=== PATIENT | male | born 1965 | race Caucasian/White ===

== ENCOUNTER 2019-06-18 02:43 | Observation (INO) | payer OTHER ==
[2019-06-18 04:00] LABS: INR-International Normal Ratio 1.2; PTT 28.9 SEC (22.9-36.1); Prothrombin Time 15.3 SEC (12.0-14.7)
[2019-06-18] MEDS ORDERED: Mag-Al 1200 mg/1200 mg/30 ML UDCUP ONE (04:05)
[2019-06-18] MEDS ORDERED: Lidocaine Viscous Sol 2% 15 ml UD Cup ONE (04:05)
[2019-06-18] MEDS ORDERED: Ketorolac Tromethamine 30 MG/ML VIAL ONE (04:05)
[2019-06-18 04:09] LABS: ALT (SGPT) 45 U/L (8-55); AST (SGOT) 46 U/L (5-34); Albumin 3.8 g/dL (3.5-5.0); Alkaline Phosphatase 109 U/L (40-110); Anion Gap 14 mmol/L (10-20); BUN (Urea Nitrogen) 12 mg/dL (8.4-25.7); Bilirubin, Total 0.7 mg/dL (0.2-1.2); Calc. Creatinine Clearance 0 mL/min (70-130); Calcium 8.6 mg/dL (7.8-10.44); Carbon Dioxide 19 mmol/L (22-29); Chloride 101 mmol/L (98-107); Estimated GFR-MDRD 88; Globulin 2.8 g/dL (2.4-3.5); Glucose 102 mg/dL (70-105); Lipase 66 U/L (8-78); Potassium 3.6 mmol/L (3.5-5.1); Protein, Total 6.6 g/dL (6.0-8.3); Sodium 130 mmol/L (136-145)
[2019-06-18 04:15] LABS: #Basophils 0.1 thou/uL (0.0-0.2); #Lymphocytes 2.3 thou/uL (1.20-3.40); #Monocytes 0.5 thou/uL (0.11-0.59); #Neutrophils 3.7 thou/uL (1.40-6.50); %Basophils 1.7 % (0.0-1.0); %Eosinophils 0.6 % (0.0-10.0); %Lymphocytes 35.2 % (21.0-51.0); %Monocytes 7.3 % (0.0-10.0); %Neutrophils 55.2 % (42.0-75.0); Hemoglobin 13.1 g/dL (14.0-18.0); Mean Corpuscular HGB CONC 36.1 g/dL (32.0-36.0); Mean Corpuscular Hemoglobin 34.5 pg (27.0-31.0); Mean Corpuscular Volume 95.5 fL (78.0-98.0); Platelet Count 145 thou/uL (130-400); RBC Distribution Width 11.2 % (11.5-14.5); Red Blood Cell (RBC) Count 3.78 mill/uL (4.70-6.10); White Blood Cell (WBC) Count 6.6 thou/uL (4.8-10.8)
[2019-06-18] MEDS ORDERED: Aspirin Chewable 81 MG TAB ONE (04:27)
[2019-06-18 04:30] LABS: CKMB 1.7 ng/mL (0-6.6)
[2019-06-18 07:25] VITALS: BMI 21.4
[2019-06-18] MEDS ORDERED: Ondansetron PF 4 MG/2 ML Vial IVP PRN (07:45)
[2019-06-18] MEDS ORDERED: Ondansetron ODT 4 MG TAB PO PRN (07:45)
[2019-06-18] MEDS ORDERED: Acetaminophen 325 MG TAB PO PRN (07:45)
[2019-06-18] MEDS ORDERED: Senokot S 8.6-50 MG TAB PO PRN (07:45)
--- NOTE | 2019-06-18 08:14 | ULT ---
PRELIMINARY REPORT/DIRECT RADIOLOGY/EMERGENCY AFTER HOURS PROCEDURE EXAM: US Abdomen Limited, Right Upper Quadrant. CLINICAL HISTORY: HX EPIGASTRIC PAIN. SEE NOTES ON LAST IMAGE. THANKS TECHNIQUE: Real-time ultrasound of the right upper quadrant with image documentation. COMPARISON:None provided. FINDINGS: LIVER: Fatty infiltration of the liver. Mildly prominent liver. GALLBLADDER: No gallstone. No wall thickening. No pericholecystic fluid. COMMON BILE DUCT: No dilation. It measures 5.5 mm. PANCREAS: Pancreas not well visualized. RIGHT KIDNEY: Nonvisualization of the right kidney. IMPRESSION: Fatty infiltration of the liver. 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 DATE: 06/18/2019. FINDINGS/IMPRESSION: Somewhat coarse liver echogenicity, evidence for nonspecific chronic liver disease including fatty in filtration. No evidence of gallstones. No common duct dilatation. Evidence for urinary bladder dis tention. Negative Clark's sign. Nonvisualized right kidney. This report is in agreement with the preliminary report. POS: [facility]
[2019-06-18 10:19] LABS: Troponin I 0.031 ng/mL (< 0.028)
[2019-06-18] MEDS: NS 0.9% w/ 20 MEQ KCL 1,000 ML/1,000 ML BAG IV SCH ×2 (10:19→23:51)
--- NOTE | 2019-06-18 12:00 | RAD ---
EXAM: CHEST ONE VIEW HISTORY: Right upper quadrant abdominal pain. Syncopal episode. COMPARISON: 11/04/2012 FINDINGS: The cardiac silhouette and pulmonary vasculature is within normal limits. The lungs are clear. The os seous structures are intact. No interval change from prior study. IMPRESSION: No acute cardiopulmonary process.
[2019-06-18 14:10] LABS: Cardiac Risk 4.4 (Less than 4.5); Cholesterol 190 mg/dl (< 200 Desired); HDL Cholesterol 43 mg/dL (>60 Neg Risk); Triglycerides 755 mg/dL (Less than 150)
[2019-06-18 14:34] LABS: CKMB 1.3 ng/mL (0-6.6)
[2019-06-18] MEDS ORDERED: hydrALAZINE 20 MG/ML VIAL SLOW IVP PRN (16:32)
[2019-06-18] MEDS ORDERED: FLU VACC QS2019-20(6MOS UP)/PF 60 MCG/0.5 ML SYRINGE IM ONE (18:00)
--- NOTE | 2019-06-18 18:40 | HP ---
CHIEF COMPLAINT: Chest pain. HISTORY OF PRESENT ILLNESS: A 53-year-old male with a history of hypertension and noncompliant with his blood pressure medications. He went to see his primary care physician 2 weeks ago and they did the blood test and he has been told that he needs to check up as there is some abnormality and concern for coronary artery disease related issues. The patient states that he did not get any imaging studies at that time. In the last 2 weeks, he did not go to work because of ongoing intermittent chest pain. 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 The chest pain mostly in the center of the chest and it stays for the most part, associated with some degree of diaphoresis and shortness of breath with exertion. He is not taking blood pressure medications. He does drink alcohol daily. He did not have any recent flu-like illness or productive cough or fever. at bedside also providing some of the information. His troponin was 0.04. REVIEW OF SYSTEMS: A 13-point review of systems reviewed with the patient. Pertinent addressed in the history of present illness and the rest is negative including no recent fever, night sweats, or chills. No nausea, vomiting, abdominal pain, constipation, diarrhea, hematuria, dysuria, or hematochezia. Denies tingling or numbness in his extremities. No headache or blurriness. Denies any rash in the body. Denies any anxiety or depression at this time. ALLERGIES: HE HAS NO KNOWN DRUG ALLERGY. HOME MEDICATIONS: 1. Trazodone 100 mg at bedtime. 2. Omeprazole 20 mg daily. 3. Fish oil 1200 mg soft gel. 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 He drinks daily. Occasional smoking only. FAMILY HISTORY: Mother had diabetes mellitus as well as stroke. PHYSICAL EXAMINATION: VITAL SIGNS: Temperature 97.7, pulse 68, blood pressure 155/79, saturating 97% on room air. GENERAL: The patient is alert, oriented, not in any acute distress. Does not appear toxic. HEENT: Pupils equal, round, reactive to light. Anicteric. Mucous membranes moist. CARDIOVASCULAR: Regular rate and rhythm without murmurs, rubs, or gallops. LUNGS: Clear to auscultation bilaterally without wheezing, rales, or rhonchi. ABDOMEN: Soft, nontender, nondistended. Good bowel sound. EXTREMITIES: No pitting edema. NEUROLOGICAL: No focal deficits. LABORATORY DATA: Sodium is 130, potassium 3.6, chloride 101. His serial troponin has remained stable at 0.04 to 0.03. EKG, normal sinus rhythm, rate of 65 beats per minute. No ST-T wave changes noted. IMPRESSION AND PLAN: This is a 53-year-old male with a history of hypertension, noncompliant with medications, ongoing active alcohol use, presenting with the chest pain. EKG without any ischemic changes. His troponin is plateaued around 0.04. We will recheck his TSH as well as lipid panel. I am putting him on aspirin and statin as well as blood pressure medication as he does not seem to have any home blood pressure medication and his blood pressure is on the upward trend. I requested the Cardiology for further recommendations. Probably, we will keep him n.p.o. for a stress test. He had a subjective abdominal pain. They did an ultrasound, did not show any gallstones. Fatty liver. Chronic alcohol use, we will watch for any withdrawal symptoms. Check B12 and folate as well as magnesium. We will monitor for now without initiating CIWA protocol. DVT prophylaxis with Lovenox. His creatinine is 0.9. We will check his lipid panel and start him on statin. Job ID: [id number] [facility]
[2019-06-18] MEDS: Morphine 2 MG/ML SYRINGE SLOW IVP PRN (18:41)
--- NOTE | 2019-06-18 19:14 | CON ---
DATE OF CONSULTATION: 06/18/2019 HISTORY OF PRESENT ILLNESS: Mr. Kaufman is a 53-year-old gentleman with epigastric pain and indeterminate troponin levels. Mr. Kaufman came to the hospital complaining of epigastric pain that has been going on for several weeks. He was scheduled for outpatient endoscopy, but it worsened. He said it hurts when he tries to swallow and when he tries to sit up or even move around. He got a GI cocktail early this morning here. The patient also had a cardiac enzyme drawn, which was indeterminate. No chest pain or pressure, heaviness, or squeezing. The patient's past history has a history of very large amounts of alcohol intake. He says he drinks at least a couple of 6 packs a day. He has a history of pancreatitis. His family member states that when he went off the alcohol in the hospital, previously he did not have alcohol withdrawal. The patient has a history of high triglycerides. MEDICATIONS: At home, he was takin. [id number] fish oil. 2. Omeprazole 20 mg a day. REVIEW OF SYSTEMS: Otherwise, negative. SOCIAL HISTORY: Drinks about 12 beers per day, sometimes more. The patient continues to work. ALLERGIES: NONE KNOWN. PHYSICAL EXAMINATION: VITAL SIGNS: It is a pleasant, thin gentleman, in no distress. He is 53 years of age. VITAL SIGNS: Blood pressure 155/66 and pulse 73, regular. EYES: Sclerae nonicteric. MOUTH: Mucous membranes moist. NECK: Supple. No lymphadenopathy. LUNGS: Clear. No wheezing. CARDIAC: Normal S1 and normal S2. There is no murmur, rub, or gallop. ABDOMEN: Soft and nontender. EXTREMITIES: Warm and dry. No clubbing or cyanosis. There is no edema. He has good peripheral pulses. IMAGING: EKG is normal. PERTINENT LABORATORY DATA: His triglycerides were high at 755, cholesterol 190, cannot calculate LDL. Troponin level peak was 0.042, but there was not a peak and trough at all. ASSESSMENT: 1. Epigastric pain worse with eating, sounds like it is gastrointestinal, possible esophagus. 2. History of heavy alcohol intake. 3. Hypertriglyceridemia. 4. History of pancreatitis, but the lipase was normal this admission. 5. Normal EKG. PLAN: 1. We would pursue GI workup. 2. We will draw another troponin level in the morning to see if there is any peak and trough effect. 3. Echocardiogram is pending. 4. Consideration for stress testing while he is here in the hospital. Job ID: [id number]
[2019-06-18] MEDS: Metoprolol Tartrate 25 MG TAB PO SCH (20:06)
[2019-06-18] MEDS ORDERED: Atorvastatin Calcium 20 MG TAB PO SCH (21:00)
[2019-06-18] MEDS: traZODone HCl 50 MG TAB PO SCH (21:48)
[2019-06-18] MEDS ORDERED: Lorazepam 1 MG TAB PO PRN (22:17)
--- NOTE | 2019-06-18 22:18 | PDOC.EVN ---
Event Note - Event Note Event Note: RN called - Pt has h/o alcoholism Will add ASSE protocol
[2019-06-19] MEDS: Morphine 2 MG/ML SYRINGE SLOW IVP PRN ×2 (05:01→21:17)
[2019-06-19 05:12] LABS: Anion Gap 12 mmol/L (10-20); BUN (Urea Nitrogen) 11 mg/dL (8.4-25.7); Calc. Creatinine Clearance 80 mL/min (70-130); Calcium 8.6 mg/dL (7.8-10.44); Carbon Dioxide 24 mmol/L (22-29); Chloride 109 mmol/L (98-107); Estimated GFR-MDRD 77; Glucose 102 mg/dL (70-105); Potassium 3.7 mmol/L (3.5-5.1); Sodium 141 mmol/L (136-145)
[2019-06-19 05:16] LABS: Troponin I 0.037 ng/mL (< 0.028)
[2019-06-19] MEDS: Thiamine 100 MG TAB PO SCH (08:02)
[2019-06-19] MEDS: Multivit, Therapeutic 1 TAB PO SCH (08:02)
[2019-06-19] MEDS: Folic Acid 1 MG TAB PO SCH (08:02)
[2019-06-19] MEDS: Metoprolol Tartrate 25 MG TAB PO SCH ×2 (08:03→21:15)
[2019-06-19] MEDS ORDERED: Aspirin 81 mg Enteric Coated Tablet PO SCH (09:00)
[2019-06-19] MEDS: NS 0.9% w/ 20 MEQ KCL 1,000 ML/1,000 ML BAG IV SCH ×2 (12:00→21:14)
--- NOTE | 2019-06-19 14:05 | PRG ---
DATE OF SERVICE: 06/19/2019 SUBJECTIVE: Mr. Kaufman continues to have epigastric pain. There is no chest pain. To reiterate again that outpatient history, he did not actually have chest pain. It is epigastric pain. OBJECTIVE: GENERAL: On examination, he is alert and oriented. VITAL SIGNS: Blood pressure 169/84 and pulse 64. NECK: Veins are normal. LUNGS: He is breathing comfortably. SKIN: Warm and dry. The stress test is going to be done today, but unfortunately he drinks some caffeine at 3:00 a.m. ASSESSMENT: 1. Epigastric pain, difficulty swallowing, sounds gastrointestinal. 2. Indeterminate troponins. PLAN: 1. He will be scheduled for stress test followed by upper endoscopy. 2. Dr. Medley increased the proton pump inhibitor dose. Job ID: [id number]
--- NOTE | 2019-06-19 14:56 | PDOC.HOSPP ---
- Subjective Encounter Date: 06/19/19 Encounter Time: 14:55 Subjective: Mr. Kaufman was seen today in follow-up of epigastric pain. He says it is constant , and non-radiating. It has been progressive over the past month. He denies dysphagia or odynophagia, no early satiety. - Objective Vital Signs & Weight: Vital Signs (12 hours) Temp Pulse Resp BP Pulse Ox 06/19/19 07:22 98.1 F 65 20 169/84 H 96 06/19/19 04:09 97.9 F 66 20 171/81 H 99 Weight Weight 150 lb 8 oz I&O: 06/18/19 06/19/19 06/20/19 06:59 06:59 06:59 Intake Total 1290 1545 Output Total 500 450 Balance 790 1095 Result Diagrams: 06/18/19 03:43 06/19/19 04:28 Hospitalist ROS - Medication Medications: Active Medications Generic Name Dose Route Start Last Admin Trade Name Freq PRN Reason Stop Dose Admin Folic Acid 1 mg 06/19/19 09:00 06/19/19 08:02 Folvite PO 1 mg DAILY JANEEN Administration Hydralazine HCl 10 mg 06/18/19 16:32 06/18/19 21:52 Apresoline SLOW IVP 10 mg Q4H PRN Administration SBP > 150 Potassium Chloride/Sodium Chloride 1,000 ml in 1,000 mls @ 75 mls/hr 06/18/19 08:00 06/18/19 23:51 Ns 0.9% W/ 20 Meq Kcl IV 1,000 mls .[id number] JANEEN Administration Metoprolol Tartrate 12.5 mg 06/18/19 21:00 06/19/19 08:03 Lopressor PO 12.5 mg BID JANEEN Administration Morphine Sulfate 2 mg 06/18/19 16:33 06/19/19 05:01 Morphine SLOW IVP 2 mg Q8H PRN Administration Chest Pain Multivitamins 1 tab 06/19/19 09:00 06/19/19 08:02 Theragran PO 1 tab DAILY JANEEN Administration Ondansetron HCl 4 mg 06/18/19 07:45 06/19/19 05:01 Zofran Odt PO 4 mg Q6H PRN Administration Nausea/Vomiting Thiamine HCl 100 mg 06/19/19 09:00 06/19/19 08:02 Thiamine PO 100 mg DAILY JANEEN Administration Trazodone HCl 100 mg 06/18/19 21:00 06/18/19 21:48 Desyrel PO 100 mg HS JANEEN Administration - Exam Eye: PERRL, anicteric sclera Heart: RRR, no murmur, no gallops, no rubs, normal peripheral pulses Respiratory: CTAB, no wheezes, no rales, no ronchi, normal chest expansion, no tachypnea, normal percussion Gastrointestinal: soft, non-distended, normal bowel sounds, no hepatomegaly, no splenomegaly, no rigidity, tender to palpation (+ epigastric tenderness with voluntary guarding), voluntary guarding Extremities: no cyanosis, no clubbing, no edema Hosp A/P (1) Epigastric pain Code(s): R10.13 - EPIGASTRIC PAIN Status: Acute (2) Alcohol abuse Code(s): F10.10 - ALCOHOL ABUSE, UNCOMPLICATED Status: Acute - Plan * Epigastric pain- ? etiology- his symptoms sound more GI * Continue IV Protonix, which has been increased to twice a day * Await stress test results * Plan for EGD tomorrow * Discussed Alcohl abuse, and recommended that he stop drinking, and discussed liver disease ect.
--- NOTE | 2019-06-19 19:43 | CON ---
DATE OF CONSULTATION: REASON FOR CONSULT: Dysphagia, epigastric and chest pain. HISTORY OF PRESENT ILLNESS: Mr. Kaufman came to the emergency room yesterday morning with complaints of abdominal pain. Apparently, he had been having some epigastric and right upper quadrant pain and had an episode of "falling out." The patient's reports he fell to the ground and had some tremors in his right hand, was shaky, but then came around. He has had some chronic issues with diarrhea. He has had issues with dysphagia for solid foods for about the past month and a half and has lost about 15 pounds. He drinks 12 to 15 beers a day. He lasted that on Thursday. He had been seen by Dr. Arthur Hallman in the past and had an upper endoscopy in 2016. In 2011, he also has had previous episode of pancreatitis. In 2012 which he reports was attributed to alcohol. He has denied fever. He denies hematemesis or melena. In the emergency room, his knee was swollen. He had a mildly elevated troponin, so Cardiology was consulted and today he is having the resting phase of the stress test. He had coffee apparently and he would not have the stress phase until Thursday. The patient notes intermittently he will have reflux. Denies taking NSAIDs. He does not take a PPI. PAST MEDICAL HISTORY: Alcohol abuse, hypertension, but he has had only his left kidney at this time and diagnosis of cirrhosis or fatty liver in the past by Dr. Hallman. PAST SURGICAL HISTORY: Includes tonsillectomy, severe ureteral obstruction problems in the past. ALLERGIES: NO ALLERGIES. MEDICATIONS: Home medications: 1. Trazodone. 2. Omeprazole. 3. Cedar-3. Medications here: 1. Tylenol. 2. Folvite. 3. Ecotrin. 4. Hydralazine. 5. Ativan. 6. Lopressor. 7. Morphine. 8. Multivitamin. 9. Thiamine. 10. Zofran. 11. Protonix 40 daily. 12. He has had 20 of KCl with normal saline 75 an hour. 13. Crestor. 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 He drinks daily about 12 beers. He is not working. He smokes occasionally. FAMILY HISTORY: Diabetes and stroke. HEALTH HISTORY: Sees Dr. Israel Fox in [place] his PCP. He is actually referred to an appointment in June with Dr. Han. In the last time, he saw Dr. Hallman in 2011. It seems he was evaluated for fatty liver at that time and was deemed to be related to alcohol. REVIEW OF SYSTEMS: Denies any odynophagia. Denies any fever. Denies any cough. Denies any hematochezia, melena, or hematemesis. He has no rashes, myalgias, or arthralgias. He has lost about 15 to 16 pounds. He states he has not had any episodes of blacking out or passing out. PHYSICAL EXAMINATION: VITAL SIGNS: Temperature is 98.1, pulse 65, blood pressure 169/84. GENERAL: He is resting on the nuclear medicine table having his rest images done for his heart. LUNGS: Clear. HEART: Regular rhythm. ABDOMEN: Epigastrium is mildly tender without rebound or guarding. There is no palpable hepatosplenomegaly. EXTREMITIES: No clubbing, cyanosis, or edema. SKIN: He has some spider angiomata on his hands and chest. There is palmar erythema and some spider angiomata on the chest. LABORATORY STUDIES: White count 6.6, yesterday hemoglobin 13.1, platelet count 145, MCV 95. INR is 1.2. Sodium 141, chloride 109, potassium 3.7, bicarb 24, BUN and creatinine are 11 and 1. His triglycerides were 755 on admission. Troponin was 0.042, then 0.037. Albumin was 3.9, globulin was 2.8, protein 6, AST 46, ALT 45, alkaline phosphatase 109, lipase 66, bilirubin 0.7. Chest x-ray showed no acute cardiopulmonary processes and his ultrasound showed fatty liver. ASSESSMENT: 1. Admission with chest pain, possibly a syncopal episode. He had mild elevated troponin. No real anginal symptoms. However, he is having a stress test today. Unfortunately, since he had caffeine in the rest phase, the stress phase would not happen until Thursday. 2. Several months of dysphagia and vomiting. He has had 15-pound weight loss. Does have a history of alcohol and tobacco use in the past. Malignancy is a concern. Esophagitis is just as likely or stricture ring. 3. Alcohol abuse. 4. Fatty liver with mild alcoholic hepatitis. 5. Chronic diarrhea. There is negative celiac testing in the past by Dr. Hallman. RECOMMENDATIONS: 1. IV PPI q.12 hours. 2. Upper endoscopy would be reasonable in light of his weight loss and dysphagia with intermittent bouts of obstruction that cause regurgitated at times, but this is going to have to wait until after his stress test is complete as that process has been begun, so the earliest will happen would be Thursday. I think it will be reasonable with his significant weight loss and definitely his risk factors for malignancy to get that done TAMMY and get that before he leaves the hospital. Dr. Hallman and Dr. Han will return tomorrow. We will see which one was going to follow him up and we will continue to follow him along with you in the hospital. 3. Would agree with DT precautions and multivitamin, thiamine, and folate. Job ID: [id number]
[2019-06-19] MEDS ORDERED: Rosuvastatin 20 MG TAB PO SCH (21:00)
[2019-06-19] MEDS: traZODone HCl 50 MG TAB PO SCH (21:15)
[2019-06-19] MEDS: Pantoprazole 40 MG VIAL IVP SCH (21:15)
[2019-06-20 05:01] LABS: Troponin I 0.024 ng/mL (< 0.028)
[2019-06-20] MEDS: Pantoprazole 40 MG VIAL IVP SCH (07:54)
[2019-06-20] MEDS: Thiamine 100 MG TAB PO SCH (07:55)
[2019-06-20] MEDS: Folic Acid 1 MG TAB PO SCH (07:55)
[2019-06-20] MEDS: Metoprolol Tartrate 25 MG TAB PO SCH (07:55)
[2019-06-20] MEDS: Multivit, Therapeutic 1 TAB PO SCH (07:55)
[2019-06-20] MEDS ORDERED: Regadenoson 0.4 MG/5 ML SYRINGE ONE (08:57)
[2019-06-20] MEDS ORDERED: PROPOFOL 200 MG/20 ML VIAL ONE (09:36)
--- NOTE | 2019-06-20 10:17 | NM ---
EXAM: Nuclear medicine cardiac perfusion examination with ejection fraction HISTORY: Chest pain TECHNIQUE: Rest images: 11 mCi technetium 99m sestamibi Stress images: 33 mCi of technetium 9M sestamibi; Lexiscan COMPARISON: None FINDINGS: Tomographic images: No fixed or reversible perfusion defects. Gated images: Normal wall motion and ejection fraction of 57%. EDV: 127 mL LHR: 0.3 TID: 1.2 IMPRESSION: No evidence of ischemia
[2019-06-20] MEDS: NS 0.9% w/ 20 MEQ KCL 1,000 ML/1,000 ML BAG IV SCH (12:20)
[2019-06-20 13:40] VITALS: BP 166/88; TEMP 98.2
--- NOTE | 2019-06-20 14:01 | PRG ---
DATE OF SERVICE: 06/20/2019 Mr. Kaufman is done getting endoscopy. The stress test was normal. He never has had chest pain. With results of endoscopy, no further intervention from a cardiac standpoint. Okay to discontinue telemetry and to be released home from a cardiac standpoint. Job ID: [id number]
--- NOTE | 2019-06-20 14:31 | PDOC.HOSPP ---
- Subjective Encounter Date: 06/20/19 Encounter Time: 14:29 Subjective: Mr. Kaufman was seen today in follow-up of chest and epigastric pain. He is feeling better today. No new complaints. - Objective Vital Signs & Weight: Vital Signs (12 hours) Temp Pulse Resp BP BP Pulse Ox 06/20/19 13:39 98.2 F 59 L 18 166/88 H 97 06/20/19 07:40 98.4 F 61 20 184/87 H 97 06/20/19 05:07 98.3 F 59 L 16 181/84 H 98 Weight Weight 150 lb 8 oz I&O: 06/19/19 06/20/19 06/21/19 06:59 06:59 06:59 Intake Total 1290 3450 Output Total 500 2050 Balance 790 1400 Result Diagrams: 06/18/19 03:43 06/19/19 04:28 Hospitalist ROS - Medication Medications: Active Medications Generic Name Dose Route Start Last Admin Trade Name Freq PRN Reason Stop Dose Admin Folic Acid 1 mg 06/19/19 09:00 06/20/19 07:55 Folvite PO 1 mg DAILY JANEEN Administration Hydralazine HCl 10 mg 06/18/19 16:32 06/18/19 21:52 Apresoline SLOW IVP 10 mg Q4H PRN Administration SBP > 150 Potassium Chloride/Sodium Chloride 1,000 ml in 1,000 mls @ 75 mls/hr 06/18/19 08:00 06/20/19 12:20 Ns 0.9% W/ 20 Meq Kcl IV Not Given .[id number] JANEEN Metoprolol Tartrate 12.5 mg 06/18/19 21:00 06/20/19 07:55 Lopressor PO 12.5 mg BID JANEEN Administration Morphine Sulfate 2 mg 06/18/19 16:33 06/19/19 21:17 Morphine SLOW IVP 2 mg Q8H PRN Administration Chest Pain Multivitamins 1 tab 06/19/19 09:00 06/20/19 07:55 Theragran PO 1 tab DAILY JANEEN Administration Ondansetron HCl 4 mg 06/18/19 07:45 06/19/19 05:01 Zofran Odt PO 4 mg Q6H PRN Administration Nausea/Vomiting Ondansetron HCl 4 mg 06/18/19 07:45 06/19/19 21:18 Zofran IVP 4 mg Q6H PRN Administration Nausea/Vomiting Rosuvastatin Calcium 20 mg 06/19/19 21:00 06/19/19 21:15 Crestor PO 20 mg HS JANEEN Administration Sodium Chloride 10 ml 06/19/19 20:38 06/19/19 21:19 Flush - Normal Saline IVF 10 ml PRN PRN Administration Saline Flush Thiamine HCl 100 mg 06/19/19 09:00 06/20/19 07:55 Thiamine PO 100 mg DAILY JANEEN Administration Trazodone HCl 100 mg 06/18/19 21:00 06/19/19 21:15 Desyrel PO 100 mg HS JANEEN Administration - Exam Eye: PERRL Heart: RRR, no murmur, no gallops, no rubs, normal peripheral pulses Respiratory: CTAB, no wheezes, no rales, no ronchi, normal chest expansion, no tachypnea, normal percussion Gastrointestinal: soft, non-tender, non-distended, normal bowel sounds, no palpable masses, no hepatomegaly, no splenomegaly Extremities: no cyanosis, no clubbing, no edema Hosp A/P (1) Epigastric pain Code(s): R10.13 - EPIGASTRIC PAIN Status: Acute (2) Alcohol abuse Code(s): F10.10 - ALCOHOL ABUSE, UNCOMPLICATED Status: Acute - Plan * Epigastric pain- patient was found to have an Esophageal stricture on EGD. Stress test was negative * He had some fingins suggestive of Gagan's esophagus * Stable for discharge home and close outpatient follow-up. *
--- NOTE | 2019-06-20 16:55 | OP ---
DATE OF PROCEDURE: 06/20/2019 PROCEDURES PERFORMED: Esophagogastroduodenoscopy with esophageal dilation over a guidewire and esophageal biopsy. PREOPERATIVE DIAGNOSES: Dysphagia and chest pain. He had cardiac evaluation including stress test that was negative. He has a history of alcohol abuse and weight loss as well. DESCRIPTION OF PROCEDURE: Informed consent was obtained from the patient. He was sedated with total intravenous anesthesia. The bite block was placed, and the endoscope was advanced easily to the second portion of the duodenum, and retroflexion was performed in the stomach. The esophagus had a benign moderate distal stenosis at the Z-line. This was dilated to 18 mm with a Savary dilator over a guidewire. There was an appropriate tear at the dilation site. There was also a 1 cm tongue of salmon-colored mucosa extending above the Z-line. This was biopsied to rule out Rosario esophagus. There were no nodularity, and this was very small segment. The remainder of the esophageal mucosa was unremarkable. The stomach was normal including retroflexed views. The pylorus and first and second portions of the duodenum were normal. IMPRESSION: 1. Benign distal esophageal moderate stricture, dilated to 18 mm with good effect and moderate mucosal disruption with dilation. 2. 1 cm segment of possible Rosario esophagus, biopsied. 3. Otherwise, normal upper endoscopy. RECOMMENDATIONS: 1. Await histopathology. 2. Proton-pump inhibitor. 3. Advance diet. 4. Follow up in GI Clinic. I will sign off. Please call if GI can be of assistance. Job ID: [id number]
--- NOTE | 2019-06-21 01:56 | DIS ---
DATE OF ADMISSION: 06/18/2019 DATE OF DISCHARGE: 06/20/2019 PRIMARY CARE PHYSICIAN: Dr. Israel Fox. DISCHARGE DISPOSITION: Home. DISCHARGE DIAGNOSES: 1. Esophageal stricture. 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 3. Epigastric pain, likely secondary to #1. 4. Alcohol abuse. 5. Hypertension. 6. Dyslipidemia. 7. Tobacco abuse. DISCHARGE MEDICATIONS: 1. Protonix 40 mg twice daily. 2. Crestor 20 mg daily. 3. Thiamine 100 mg daily. 4. Multivitamin once daily. 5. Folic acid 1 mg daily. 6. Amlodipine 5 mg daily. 7. Trazodone 100 mg at bedtime. 8. [place]-3 fatty acids 1 tablet daily. IMAGING DONE DURING THE HOSPITAL STAY: The patient had an abdominal ultrasound, which demonstrated fatty infiltration of the liver. No gallstones. No gallbladder wall thickening. No pericholecystic fluid. The patient had new nuclear stress test, which was negative for any reversible ischemia. The TID was 1.2. The patient had an echocardiogram in which the ejection fraction was estimated at 55% to 60%. The patient had an upper endoscopy and the findings of which was significant for an esophageal stricture as well as mucosa suspicious for Rosario's esophagus. CODE STATUS: Full code. ALLERGIES: NO KNOWN DRUG ALLERGIES. HOSPITAL COURSE: Mr. Kaufman is a 53-year-old gentleman, who presented to the emergency room complaining of chest pain and epigastric pain. The patient was placed in observation. He underwent a nuclear stress test, which was negative. Cardiology was also consulted. An echocardiogram was also done, which was essentially negative. His description of the pain sounded more GI in origin than cardiac and for this reason, Gastroenterology was consulted. The patient underwent upper endoscopy and was found to have a distal esophageal stricture as well as findings consistent with a possible Rosario's esophagus. He is being placed on a different proton pump inhibitor twice a day and to follow up with GI in the outpatient setting for surveillance and also with Dr. Fox in 1 to 2 weeks. The patient was also instructed on alcohol cessation as well as tobacco cessation and the dangers of continuing either or both. Job ID: [id number]
== END 2019-06-20 15:34 | disposition home or self-care (01) ==
LOC: ERS 02:43 → 2SW 07:10
PROVIDERS: ADMIT Internal Medicine; ATTEND Internal Medicine
PROC: 0DB58ZX Excision of Esophagus, Via Natural or Artificial Opening Endoscopic, Diagnostic (ICD-10-PCS; principal; 2019-06-20)
PROC: 0D758ZZ Dilation of Esophagus, Via Natural or Artificial Opening Endoscopic (ICD-10-PCS; 2019-06-20)
DX: K22.2 Esophageal obstruction (principal); F10.21 Alcohol dependence, in remission; K76.0 Fatty (change of) liver, not elsewhere classified; K70.10 Alcoholic hepatitis without ascites; K52.9 Noninfective gastroenteritis and colitis, unspecified; I10 Essential (primary) hypertension; E78.5 Hyperlipidemia, unspecified; E78.1 Pure hyperglyceridemia; F17.200 Nicotine dependence, unspecified, uncomplicated; Z79.899 Other long term (current) drug therapy; Z91.14 Patient's other noncompliance with medication regimen
CPT/HCPCS: 36415; 71045; 76705; 78452; 80048; 80053; 80061; 82553; 83690; 84439; 84443; 84484; 85025; 85610; 85730; 88305; 88312; 88313; 90471; 90686; 90732; 93005; 93017; 93306; 96361; 96374; 96375; 96376; A9500; C9113; G0008; G0009; G0378; J0360; J1885; J2270; J2405; J2704; J2785; J3480; Q0162

== ENCOUNTER 2020-03-14 19:22 | Inpatient (IN) | payer SELFPAY ==
[2020-03-14] MEDS ORDERED: Ondansetron PF 4 MG/2 ML Vial ONE (20:29)
[2020-03-14] MEDS ORDERED: Morphine 4 MG/ML VIAL ONE (20:29)
[2020-03-14] MEDS ORDERED: hydrALAZINE 20 MG/ML VIAL ONE (21:24)
[2020-03-14] MEDS ORDERED: Dextrose 50% Abboject 50 ML SYRINGE SLOW IVP PRN (21:31)
[2020-03-14] MEDS ORDERED: Dextrose 5% in Water 1,000 ML IV PRN (21:31)
[2020-03-14] MEDS ORDERED: Ondansetron PF 4 MG/2 ML Vial IVP PRN (21:31)
[2020-03-14] MEDS ORDERED: Morphine 4 MG/ML VIAL SLOW IVP PRN (21:31)
[2020-03-14] MEDS ORDERED: Oxazepam 10 MG CAP PO SCH (22:00)
[2020-03-14] MEDS ORDERED: traMADol HCl 50 MG TAB PO SCH (22:00)
[2020-03-14] MEDS ORDERED: Acetaminophen 500 MG TAB PO SCH (22:00)
--- NOTE | 2020-03-14 23:00 | HP ---
TRAUMA SURGEON: Dr. Knapp. CONSULTING PHYSICIANS: Dr. Meyer and Dr. Polk. HISTORY OF PRESENT ILLNESS: The patient is a 54-year-old male, who presented to our emergency department from an outside emergency department. The patient reports that yesterday around 3 o'clock in the afternoon, he fell about 14 feet out of his deer stand and hit his back on a log. The patient reports that he did have a loss of consciousness but eventually woke up and was able to ambulate back to his home. 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 When going back home in the evening time, his convinced him to go to the emergency department reporting back and abdominal pain. On CT evaluation, he was found to have a L1 burst fracture and he was transferred here for admission to the Trauma Service. Dr. Meyer's team of Neurosurgery evaluated the patient's imaging and recommended nonoperative management with a clamshell TLSO brace. Upon CT evaluation, the patient was also noted to have left hydroureteronephrosis of his only kidney. The patient was not born with a right-sided kidney. The patient reports that he has a history of urethral strictures, for which in 2005, he had operative intervention by urologist. Those records are not available to us. He says since that time, he intermittently self-caths whenever he has difficulty voiding. About 90 days ago, he was not able to pass the catheter. He reports waking up several times throughout the night in order to void and it is very disturbing to his sleep. He has a primary care physician, Dr. Fox, who prescribes trazodone to him for sleep. He is noncompliant with other medications and reports not taking his antihypertensives because it makes him feel unusual. He was not able to describe this further. The patient also has a history of alcohol abuse, drinking more than 9 beers a day. Recently, also one of his children of unknown causes, which has made his drinking slightly worse. Of note, also CT scan demonstrates concern for possible significant carotid stenosis. Ultrasound has been ordered. Upon my evaluation, the patient reports loss of consciousness. No anticoagulation use and no focal neurological deficits on evaluation. He denies numbness or tingling in his bilateral upper and lower extremities and has no significant signs of trauma otherwise. He denies chest pain, shortness of breath, orthopnea, nausea, or vomiting. REVIEW OF SYSTEMS: All additional 10-point review of systems is negative except as indicated above. PAST MEDICAL HISTORY: Hypertension, esophageal strictures, alcohol abuse, dyslipidemia, urethral strictures with operative intervention in 2005. PAST SURGICAL HISTORY: Tonsillectomy and urology surgery for urethral strictures. The patient was not able to further describe what exactly the operative course entailed. SOCIAL HISTORY: The patient lives at home with his . He has one living child and one recently son. 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 He drinks more than 9 beers a day. He reports smoking tobacco for about one year before quitting. Denies any drug use. MEDICATIONS: Include trazodone. Noncompliant with other medications. ALLERGIES: NO KNOWN DRUG ALLERGIES. PHYSICAL EXAMINATION: VITAL SIGNS: Temperature 98.4, pulse 74, respirations 16, oxygen saturation 96% on room air, and blood pressure 182/93. PRIMARY SURVEY: Airway intact. Adequate breath sounds bilaterally. 2+ pulses in bilateral radials, femorals, and DPs. GCS 15. Gross motor and sensation are intact. No lacerations, bruising, or external bleeding. SECONDARY SURVEY: HEAD: Normocephalic. No gross palpable skull deformities or tenderness. EYES: Pupils 3 to 2, equal, round, and reactive bilaterally. ENT: No signs of trauma. C-SPINE: No step-offs or deformities. Nontender. No C-collar in place. CHEST: Nontender. No crepitus. No abrasions or ecchymosis noted. ABDOMEN: Soft, nontender, nondistended. PELVIS: Stable to palpation. Nontender. No abrasions or ecchymosis noted. RECTAL: Deferred. GENITOURINARY: No trauma to the external genitalia. EXTREMITIES: No gross deformities. No abrasions or ecchymosis noted. 2+ pulses in bilateral radials, femorals, and DPs. BACK/SPINE: No step-offs or deformity. Tenderness over the lower thoracic/L-spine. No abrasions or ecchymosis noted. NEUROLOGIC: 5/5 strength in bilateral fitness coordinator, plantar flexion, and dorsiflexion. Gross normal sensation x4 extremities. LABORATORY FINDINGS: White count 6.1, hemoglobin 13.0, hematocrit 38.6, and platelets 124. Sodium 138, potassium 3.9, chloride 103, bicarb 20, BUN 9, creatinine 1.05, glucose 115, total bilirubin 0.4, AST 56, ALT 45, and alkaline phosphatase 118. UA is negative for blood or signs of infection. Plasma alcohol level is 196. DIAGNOSTIC FINDINGS: CT scan of the chest, abdomen, and pelvis demonstrates acute traumatic compression/burst fracture of L1 lumbar vertebrae, mild to moderate left hydroureteronephrosis involving solitary left kidney, apparent possible obstruction at the left ureterovesicular junction. Diffuse mural thickening of the urinary bladder could represent chronic or acute cystitis. Recommend followup with left hydronephrosis with ultrasound after emptying of the urinary bladder. CT scan of the brain demonstrates no acute abnormalities. CT scan of the C-spine demonstrates prominent degenerative changes of the cervical spine. No acute osseous abnormalities are demonstrated. Prominently atherosclerosis with probable high-grade stenosis of the left internal carotid artery. ASSESSMENT: 1. Status post fall 14 feet, greater than 24 hours ago. 2. L1 burst fracture. 3. Left hydroureteronephrosis. 4. Concern for possible left-sided significant carotid stenosis. 5. History of alcohol abuse, hypertension, dyslipidemia, and urethral strictures. PLAN: The patient will be admitted to the Trauma Service. He will go to the regular surgical nursing floor. Dr. Meyer's team has evaluated the patient and they are recommending nonoperative management with a clamshell TLSO brace. He will remain in T and L-spine spinal precautions until his brace is fitted, ensuring to log roll the patient until that time. He can have a regular diet. He will start working with Physical and Occupational Therapy once he has his brace and will likely be able to be discharged home. We will attempt a Gonzalez catheter placement once in the emergency department to give some patient relief so he can sleep this evening. If we are unable to pass the catheter easily, we will leave it out tonight. In the morning, we will consult Dr. Polk of Urology for evaluation of the patient's hydroureteronephrosis. The patient also received carotid ultrasound for evaluation of possible significant carotid stenosis on the left. This patient has been discussed with Dr. Knapp before this dictation. Job ID: [id number]
[2020-03-15 00:22] VITALS: BMI 21.6
[2020-03-15] MEDS: Cyclobenzaprine 10 MG TAB PO PRN ×3 (03:29→20:59)
[2020-03-15] MEDS ORDERED: Sodium Chloride 0.9% 1,000 ML IV SCH (04:30)
[2020-03-15 05:20] LABS: INR-International Normal Ratio 1.1; PTT 29.2 sec (22.9-36.1); Prothrombin Time 13.9 sec (12.0-14.7)
[2020-03-15] MEDS: Acetaminophen 500 MG TAB PO SCH ×3 (05:29→17:25)
[2020-03-15] MEDS: traMADol HCl 50 MG TAB PO SCH ×3 (05:29→17:25)
[2020-03-15 05:33] LABS: #Monocytes 0.6 thou/uL (0.11-0.59); #Neutrophils 2.5 thou/uL (1.40-6.50); %Basophils 0.6 % (0.0-1.0); %Eosinophils 0.9 % (0.0-10.0); %Lymphocytes 23.3 % (21.0-51.0); %Monocytes 14.8 % (0.0-10.0); %Neutrophils 60.4 % (42.0-75.0); Hemoglobin 11.7 g/dL (14.0-18.0); Mean Corpuscular Hemoglobin 32.4 pg (27.0-31.0); Mean Platelet Volume 6.6 fL (7.4-10.4); Platelet Count 101 thou/uL (130-400); RBC Distribution Width 10.9 % (11.5-14.5); White Blood Cell (WBC) Count 4.1 thou/uL (4.8-10.8)
[2020-03-15 05:39] LABS: Anion Gap 12 mmol/L (10-20); BUN (Urea Nitrogen) 12 mg/dL (8.4-25.7); Calc. Creatinine Clearance 102 mL/min (70-130); Calcium 8.8 mg/dL (7.8-10.44); Carbon Dioxide 25 mmol/L (22-29); Chloride 107 mmol/L (98-107); Estimated GFR-MDRD Greater than 90; Glucose 102 mg/dL (70-105); Magnesium 2.1 mg/dL (1.6-2.6); Phosphorus 3.1 mg/dL (2.3-4.7); Sodium 140 mmol/L (136-145)
[2020-03-15] MEDS: Multivitamin W/ Minerals 1 TAB PO SCH (08:13)
[2020-03-15] MEDS: Senokot S 8.6-50 MG TAB PO SCH ×2 (08:13→21:00)
[2020-03-15] MEDS: Oxazepam 10 MG CAP PO SCH ×2 (08:13→14:35)
[2020-03-15] MEDS: Thiamine 100 MG TAB PO SCH (08:13)
[2020-03-15] MEDS: Polyethylene Glycol 3350 17 GM Packet PO SCH (08:14)
[2020-03-15] MEDS: Folic Acid 1 MG TAB PO SCH (08:14)
[2020-03-15] MEDS: Gabapentin 300 MG CAP PO SCH ×3 (08:14→21:00)
[2020-03-15] MEDS: hydrALAZINE 20 MG/ML VIAL SLOW IVP PRN (08:46)
[2020-03-15] MEDS ORDERED: Famotidine/PF 20 mg/2ml Vial SLOW IVP SCH (09:00)
[2020-03-15 09:41] LABS: SARS-CoV-2 MS2 Positive; SARS-CoV-2 N Gene Negative; SARS-CoV-2 S Gene Negative; SARS-CoV-2 by NAA Not Detected (NotDetected); SARS-CoV-2 orf1ab Negative
--- NOTE | 2020-03-15 09:59 | CON ---
DATE OF CONSULTATION: 03/15/2020 HISTORY OF PRESENT ILLNESS: The patient is a 54-year-old male with a past medical history of hypertension, alcohol abuse, urethral strictures, esophageal strictures, who presented to the [place] [facility] yesterday following a fall approximately 14 feet out of a deer stand yesterday afternoon. The patient was significantly intoxicated at that time. He reports he landed on his back on top of a log and had a short period of LOC. Following awakening, he ambulated back to his home, but had developed significant back pain. He was brought to the emergency department in [place] by [facility] where he was evaluated with trauma scans and found to have an L1 burst fracture with very slight retropulsion. He was neurologically intact in the department with no focal weakness. Neurosurgery was consulted for management of this fracture and I recommended transfer to the Main facility for TLSO bracing. During his workup, he was also found to have several other medical issues including hydronephrosis of his single kidney as well as carotid stenosis. He has been admitted by the Trauma Team and they are managing the other medical issues. PAST MEDICAL HISTORY: 1. Hypertension. 2. Esophageal strictures. 3. Alcohol abuse. 4. Dyslipidemia. 5. Urethral strictures with operative intervention in 2005. PAST SURGICAL HISTORY: 1. Tonsillectomy. 2. Urology surgery. SOCIAL HISTORY: He lives at home. He drinks approximately 9 beers per day. He is a former smoker. ALLERGIES: NO KNOWN DRUG ALLERGIES. REVIEW OF SYSTEMS: Per HPI. PHYSICAL EXAMINATION: VITAL SIGNS: Stable. GENERAL: He is lying flat and comfortable. No acute distress. HEENT: Normocephalic, atraumatic. Eyes, PERRLA. Extraocular movements intact. ENT, pink, intact, moist. NECK: Nontender. Free active range of motion. No meningismus or nuchal rigidity. CARDIAC: Regular rate and rhythm. PULMONARY: Symmetric chest expansion. No evidence of dyspnea. MUSCULOSKELETAL: Free active range of motion of all extremities. No focal motor weakness. No reflex asymmetry. BACK: I did not attempt to roll or palpate the spine due to his underlying injury. NEUROLOGIC: A and O x4. No focal neurologic deficits are appreciated. ASSESSMENT AND PLAN: The patient has an acute L1 burst fracture with slight retropulsion after approximately 14 feet fall from a deer stand. He is neurologically intact. We will plan to treat this nonoperatively, conservatively with TLSO bracing. I have ordered a clamshell TLSO to be fitted by [facility], which he should wear at all times. I anticipate bracing in for the next 8 to 12 weeks. I will arrange followup with our service in approximately 4 weeks to reassess. Once his brace is fitted, he can begin to mobilize and transition to home once able. Deferring other medical issues to the Trauma and Medical teams. Job ID: [id number]
[2020-03-15] MEDS ORDERED: Lisinopril 10 MG TAB PO SCH (12:00)
--- NOTE | 2020-03-15 13:29 | ULT ---
CAROTID DOPPLER: Date: 03/15/2020 Ultrasound Doppler study performed on the extracranial carotid arteries with color Doppler, spectral analysis, and velocity recordings. INDICATION: Follow-up recent CT cervical spine which showed evidence of carotid artery stenosis on the left. FINDINGS: Ultrasound images show intimal thickening and prominent echogenic plaque bilaterally. Very pronounced echogenic plaque in the left bulb and proximal left ICA noted. Velocity recordings are increased in the left ICA recorded at up to 193 cm/second systolic. This nedra cates a significant stenosis greater than 60%. Velocities in the right ICA are within normal range, recorded at up to 92 cm/second. Vertebral arteries show antegrade flow. IMPRESSION: 1. There is echogenic plaque and intimal thickening bilaterally with pronounced echogenic plaque in the left proximal ICA. 2. Velocity recordings indicate hemodynamically significant stenosis in the left internal carotid ar sorin. Review of the CT of 03/14/2020 demonstrates prominent calcified plaque in both bulbs which woul d inhibit evaluation with CTA. Recommend cardiovascular consultation and catheter angiogram for accur ate evaluation of the degree of stenosis. POS: TONY
--- NOTE | 2020-03-15 13:40 | ULT ---
RENAL ULTRASOUND: 03/15/20 INDICATIONS: Hydronephrosis, solitary left kidney. Correlation made to CT 03/14/20 which revealed left hydronephrosis in the solitary left kidney. FINDINGS/IMPRESSION: Left kidney measures 12.6 cm length. There is moderate hydronephrosis observed. Urinary bladder is distended. There is urinary bladder wall thickening. Patient voided with handheld held ureter while in bed. Technologist states he was not allowed to get out of bed. Ultrasound post void shows persistent left hydronephrosis. Bladder did not empty and bladder remains distended on post void exam. POS: [facility]
--- NOTE | 2020-03-15 14:39 | PRG ---
DATE OF SERVICE: 03/15/2020 SUBJECTIVE: Mr. Kaufman is a 54-year-old male who is hospital day #1 following a fall from his deer stand, in which he sustained an L1 burst fracture. The patient received his TLSO brace today and reports he is feeling well. The patient's pain is well controlled and he is comfortable sitting on the side of his bed. The patient has been having elevated blood pressures, systolics 170s to 180s. He reports he has a history of high blood pressure and was prescribed medicine in the past, but did not take it because he did not like the way it made him feel. OBJECTIVE: VITAL SIGNS: Temperature 98.3, pulse 60, respirations 18, oxygen saturation 98% on room air, blood pressure 195/92. GENERAL: Comfortable, sitting on the side of the bed, says he was about to go to the restroom. HEENT: Normocephalic and atraumatic. RESPIRATIONS: Clear to auscultation bilaterally. CARDIOVASCULAR: Regular rate and rhythm. ABDOMEN: Soft, nontender, and nondistended. EXTREMITIES: Moving all extremities well. NEUROLOGIC: GCS 15. LABORATORY DATA AND IMAGING DATA: White count 4.1, hemoglobin 11.7, hematocrit 36.5, platelets 101. Sodium 140, potassium 4.0, phosphorus 3.1, and magnesium 2.1. Carotid Doppler study showed echogenic plaque and intimal thickening bilaterally with pronounced echogenic plaque in the left proximal ICA. These studies indicate hemodynamically significant stenosis in left ICA. Recommend cardiovascular consult and catheter angiogram for further evaluation. Renal ultrasound; moderate hydronephrosis of the left ureter, distended urinary bladder with urinary bladder thickening, postvoid persistent left hydronephrosis, and postvoid bladder distention. ASSESSMENT: 1. Status post fall from 14 feet greater than 24 hours ago. 2. L1 burst fracture. 3. Left hydroureteronephrosis. 4. Possible left-sided significant carotid stenosis. 5. History of alcohol abuse, hypertension, dyslipidemia, and urethral strictures. PLAN: 1. The patient was fitted for a TLSO brace and is recommended to follow up with Neurosurgery in 4 weeks after discharge. 2. Urology consult placed for hydronephrosis and history of urethral strictures. We will await their recommendations. 3. Consider Cardiology consult for further workup of possible stenosis of left ICA, may also consider having the patient followup with Cardiology outpatient. 4. Continue to work with PT and OT. Continue pain management and supportive care. 5. Start the patient on 10 mg lisinopril for blood pressure control. 6. Lovenox 40 mg daily for DVT prophylaxis. 7. The patient should be discharged home following being seen by Urology. The patient was seen and evaluated by Dr. Stone during morning rounds. Discussed plan of care with the patient who is in agreement. Job ID: [id number] MTDD
[2020-03-15] MEDS ORDERED: Iopamidol-370 76% 500 ML 1 ML ONE (14:42)
--- NOTE | 2020-03-15 17:43 | CON ---
DATE OF CONSULTATION: 03/15/2020 REASON FOR CONSULTATION: Solitary kidney. CHIEF COMPLAINT: Recent fall. HISTORY OF PRESENT ILLNESS: This is a 54-year-old male, who fell from a deer stand 2 days ago. He presented to the emergency room yesterday and was admitted with an L1 burst fracture, for which no surgery is planned. On CT, the patient was found to have hydroureteronephrosis. In speaking with the patient, he tells me that he was born with only the one kidney. He has a history in 2005 of undergoing what sounds like a DVIU telling me that he had a urologist look in his urethra and cut scar tissue. He was seen by my partner back in 2017, at which point, he was started on twice daily CIC. He had was doing this with some consistency until about 3 months ago, at which point, he became unable to pass the catheter. He has been voiding, although does not feel that he empties completely ever since. He denies suprapubic pain, flank pain, nausea, fevers, or chills. PAST MEDICAL HISTORY: Hypertension, alcohol abuse, hyperlipidemia, and urethral stricture. SURGICAL HISTORY: DVIU as mentioned above, tonsillectomy. SOCIAL HISTORY: Significant alcohol intake. . Employed. Nonsmoker currently. MEDICATIONS: Reviewed. No pertinent urology medications. ALLERGIES: NO KNOWN DRUG ALLERGIES. FAMILY HISTORY: Reviewed, noncontributory. REVIEW OF SYSTEMS: Ten-point review of systems is negative except as mentioned above. PHYSICAL EXAMINATION: VITAL SIGNS: Afebrile, vitals stable. GENERAL: No acute distress, conversant. HEENT: Head, normocephalic and atraumatic. Extraocular movements intact. Sclerae are anicteric. NECK: Supple. Trachea midline. LUNGS: Unlabored breathing. Symmetric chest expansion. HEART: Regular rate and rhythm. ABDOMEN: Not able to evaluate given the clamshell brace. I cannot evaluate for flank tenderness. I am able to somewhat palpate his suprapubic region and cannot appreciate his bladder. SKIN: Warm and dry. NEUROLOGIC: Alert and oriented x3. PSYCHIATRIC: Normal mood and affect. LABORATORY DATA: Creatinine 0.85 with GFR over 90. Urine output 1655. IMAGING: I personally reviewed his CT scan, which does show a distended bladder with hydroureter and minimal hydronephrosis. ASSESSMENT AND PLAN: Urinary retention, likely secondary to urethral stricture. Attempts were made last night to place a catheter. In speaking with the patient and reviewing his case, I do not think there is a reason for us to attempt to place a urethral catheter. This would only worsen his stricture disease. His next step is likely a suprapubic tube, but I do not think this is emergent. His renal function is fine. He is not having any discomfort and he is not having recurrent infections. I decided that we will hold off on placing the catheter until we can meet in my office in a few weeks to perform cystoscopy and consider surgical options. I will arrange followup for about 3 weeks. Please call with any questions. Job ID: [id number] [facility]
--- NOTE | 2020-03-15 20:05 | CT ---
CT ANGIOGRAM NECK WITH CONTRAST: DATE: 03/15/2020 HISTORY: 54-year-old male with left internal carotid artery stenosis TECHNIQUE: After IV contrast injection, arterial bolus chasing technique scan performed from top of aortic arch to skull base Coronal and sagittal 3-D MIP reconstructions. NASCET criteria used. FINDINGS: Right internal carotid: There is multifocal scattered mild to moderate calcified atherosclerotic plaq ue in the proximal vessel, beginning at its origin at the carotid bulb, but with no significant stenosis. Left internal carotid: A combination of heavily calcified hard atheromatous plaque and noncalcified s oft atheromatous plaque in the proximal vessel, beginning at the origin at carotid bulb, and extending superiorly a distance of 2.5 cm. At the superior aspect of this plaque, there is severe, ap proximately 75-90% stenosis of the lumen. Brachiocephalic: Normal Right common carotid: Multifocal scattered small calcified plaque without stenosis. Left common carotid: Bovine common origin with brachiocephalic. Calcified plaque causing mild stenosi s at lower neck. No high-grade stenosis. Right subclavian: Normal Left subclavian: Partially obscuring of distal portion by streak artifact from adjacent contrast bolu s in left subclavian vein, but probably no high-grade stenosis there. Normal proximal portion. Right vertebral: Slightly dominant. No stenosis. Left vertebral: Normal IMPRESSION: A combination of hard and soft atheromatous plaque in the proximal left internal carotid artery cause s severe stenosis there.
[2020-03-15] MEDS: Ibuprofen 200 MG TAB PO PRN (20:59)
[2020-03-15] MEDS ORDERED: Tamsulosin HCl 0.4 MG CAP PO SCH (21:00)
[2020-03-15] MEDS ORDERED: Enoxaparin Sodium 40 MG/0.4 ML SYRINGE SC SCH (21:00)
--- NOTE | 2020-03-15 23:39 | CON ---
DATE OF CONSULTATION: 03/15/2020 REASON FOR CONSULTATION: The patient with asymptomatic left carotid stenosis. HISTORY OF PRESENT ILLNESS: Mr. Kaufman is a 54-year-old gentleman who fell off a tree from his deer stand landing on a wall fractured L1. He has been put in a TLSO brace. As part of his evaluation, he had a CT scan performed of his neck, which showed severe calcification of the left carotid bulb and proximal internal carotid artery. He has had a carotid ultrasound performed, which shows peak systolic velocities of 193 in the left internal carotid artery. There was heavy calcification noted. The patient has no history of TIA or CVA. He has no previous cardiac history. He stopped smoking 2 months ago. He has no peripheral vascular disease history. Currently, he is resting comfortably on the surgical floor. PAST MEDICAL HISTORY: 1. Hypertension. 2. Esophageal strictures. 3. Alcohol abuse. 4. Dyslipidemia. 5. History of urethral strictures. PAST SURGICAL HISTORY: 1. Tonsillectomy. 2. Urologic surgery for urethral strictures. SOCIAL HISTORY: He quit smoking a couple of months ago. He lives at home with his . HOME MEDICATIONS: Trazodone. ALLERGIES: NONE. REVIEW OF SYSTEMS: A 10-point review of systems is performed and is negative except as above. PHYSICAL EXAMINATION: GENERAL: This is a well-developed, well-nourished male, resting comfortably. VITAL SIGNS: Height 6 feet 1 inches, weight is 164 pounds. BSA is 1.96. Temperature is 98.3, pulse is 57 and regular, and blood pressure is 161/79. HEENT: Sclerae nonicteric. Pupils are equal and round bilaterally. NECK: Supple with left carotid bruit. CHEST: Clear bilaterally. HEART: Rhythm is regular. ABDOMEN: Soft. EXTREMITIES: There is no edema. ASSESSMENT AND PLAN: This is a pleasant 54-year-old gentleman who has asymptomatic left carotid stenosis. We will obtain a CT angiogram to evaluate this plaque further and make recommendations from there. I have discussed with him the possibility of surgical treatment and he is amenable. Since he is asymptomatic and currently in a TLSO brace, I would wait a couple months until he is out of the brace and healed from his fracture to treat him. We will make arrangements to follow him up in office. I will discuss his CT findings with him tomorrow. Job ID: [id number]
[2020-03-16] MEDS: Acetaminophen 500 MG TAB PO SCH ×3 (00:26→12:14)
[2020-03-16] MEDS: Oxazepam 10 MG CAP PO SCH ×2 (00:27→08:59)
[2020-03-16] MEDS: traMADol HCl 50 MG TAB PO SCH ×3 (00:27→12:14)
--- NOTE | 2020-03-16 02:45 | PRG ---
DATE OF SERVICE: 03/15/2020 SUBJECTIVE: The patient was seen this evening during rounds. He was lying in bed with his TLSO brace in place. He was resting comfortably and asleep with no signs of acute distress. OBJECTIVE: VITAL SIGNS: Temperature 98.2, pulse 60, respirations 17, oxygen saturation 98% on room air, blood pressure 164/80. ASSESSMENT: 1. Status post fall from 14 feet. 2. L1 burst fracture. 3. Left hydroureteronephrosis, chronic. 4. Severe left-sided carotid stenosis. 5. History of urethral strictures, esophageal strictures, alcohol abuse, hypertension, and hyperlipidemia. PLAN: 1. Continue current diet and pain regimen. 2. Continue physical and occupational therapy. 3. The patient to be evaluated by Dr. Campos for severe carotid stenosis. 4. We will follow up a plan for with him. 5. TLSO brace fitting appropriately. 6. Start working with Physical and Occupational therapy for L-spine fracture. 7. Dr. Polk recommended no Gonzalez at this time. The patient will need a suprapubic catheter. He recommends deferring that to a later date. 8. We will see the patient in three weeks at his clinic. Job ID: [id number]
[2020-03-16 06:44] LABS: #Eosinphils 0.1 thou/uL (0.0-0.7); #Lymphocytes 1.1 thou/uL (1.20-3.40); #Monocytes 0.4 thou/uL (0.11-0.59); #Neutrophils 1.9 thou/uL (1.40-6.50); %Basophils 0.4 % (0.0-1.0); %Lymphocytes 31.3 % (21.0-51.0); %Monocytes 11.3 % (0.0-10.0); %Neutrophils 54.1 % (42.0-75.0); Mean Corpuscular HGB CONC 34.5 g/dL (32.0-36.0); Mean Corpuscular Hemoglobin 35.8 pg (27.0-31.0); Mean Platelet Volume 7.3 fL (7.4-10.4); Platelet Count 96 thou/uL (130-400); RBC Distribution Width 10.9 % (11.5-14.5); Red Blood Cell (RBC) Count 3.36 mill/uL (4.70-6.10); White Blood Cell (WBC) Count 3.4 thou/uL (4.8-10.8)
[2020-03-16 06:53] LABS: Anion Gap 12 mmol/L (10-20); BUN (Urea Nitrogen) 9 mg/dL (8.4-25.7); Calc. Creatinine Clearance 89 mL/min (70-130); Carbon Dioxide 27 mmol/L (22-29); Chloride 103 mmol/L (98-107); Estimated GFR-MDRD 80; Glucose 97 mg/dL (70-105); Magnesium 1.9 mg/dL (1.6-2.6); Phosphorus 3.6 mg/dL (2.3-4.7); Potassium 4.2 mmol/L (3.5-5.1); Sodium 138 mmol/L (136-145)
--- NOTE | 2020-03-16 08:04 | CON ---
DATE OF CONSULTATION: I have reviewed Mr. Kaufman' CT angiogram. He has greater than 80% stenosis of the left internal carotid artery with high risk character to his plaque. I have discussed with him that I would like to wait until after he has his TLSO brace off as the brace will rub on his incision for TCAR. He should be a good TCAR candidate. I will follow him up as an outpatient and we will make plans for TCAR after the 2 month period of TLSO bracing has passed. I would continue him on aspirin and Plavix up until the time of his surgery. Job ID: [id number]
[2020-03-16] MEDS: Gabapentin 300 MG CAP PO SCH ×2 (08:59→13:47)
[2020-03-16] MEDS: Folic Acid 1 MG TAB PO SCH (08:59)
[2020-03-16] MEDS ORDERED: Aspirin 81 mg Enteric Coated Tablet PO SCH (09:00)
[2020-03-16] MEDS ORDERED: Clopidogrel Bisulfate 75 MG TAB PO SCH (09:00)
[2020-03-16] MEDS ORDERED: Lisinopril 10 MG TAB PO SCH (09:00)
[2020-03-16] MEDS ORDERED: Lisinopril 20 MG TAB PO SCH (09:00)
[2020-03-16] MEDS: Polyethylene Glycol 3350 17 GM Packet PO SCH (09:01)
[2020-03-16] MEDS: Multivitamin W/ Minerals 1 TAB PO SCH (09:01)
[2020-03-16] MEDS: Thiamine 100 MG TAB PO SCH (09:02)
[2020-03-16] MEDS: Senokot S 8.6-50 MG TAB PO SCH (09:02)
[2020-03-16 12:08] VITALS: TEMP 98.4
[2020-03-16] MEDS: hydrALAZINE 20 MG/ML VIAL SLOW IVP PRN (13:04)
[2020-03-16] MEDS: Cyclobenzaprine 10 MG TAB PO PRN (13:45)
[2020-03-16] MEDS: Ibuprofen 200 MG TAB PO PRN (13:45)
[2020-03-16 16:20] VITALS: BP 172/81
[2020-03-16] MEDS ORDERED: traZODone HCl 50 MG TAB PO SCH (21:00)
[2020-03-16] MEDS ORDERED: Atorvastatin Calcium 10 MG TAB PO SCH (21:00)
== END 2020-03-16 16:27 | disposition home or self-care (01) | DRG 552 ==
LOC: ERS 19:22 → SURG A 20:34
PROVIDERS: ADMIT Surgery; ATTEND Surgery
DX: S32.011A Stable burst fracture of first lumbar vertebra, initial encounter for closed fracture (principal); N13.30 Unspecified hydronephrosis; Q60.0 Renal agenesis, unilateral; Z20.828 Contact with and (suspected) exposure to other viral communicable diseases; I10 Essential (primary) hypertension; E78.5 Hyperlipidemia, unspecified; F10.10 Alcohol abuse, uncomplicated; W17.89XA Other fall from one level to another, initial encounter; E78.00 Pure hypercholesterolemia, unspecified; K74.60 Unspecified cirrhosis of liver; F41.9 Anxiety disorder, unspecified; K22.2 Esophageal obstruction; I65.21 Occlusion and stenosis of right carotid artery; N35.919 Unspecified urethral stricture, male, unspecified site; R33.9 Retention of urine, unspecified; Z87.891 Personal history of nicotine dependence; Z79.899 Other long term (current) drug therapy
CPT/HCPCS: 36415; 51702; 70498; 76775; 80048; 83735; 84100; 85025; 85610; 85730; 87635; 93880; 96374; 96375; G0390; J0360; J1650; J2270; J2405; Q9967; S0028; U0003

== ENCOUNTER 2020-05-04 15:36 | Inpatient (IN) | payer OTHER, SELFPAY ==
[~2020-05-04 15:36] MED LIST: Magnevist 469MG/ML 20 ML VIAL ONE
[2020-05-04 16:23] LABS: #Basophils 0.1 thou/uL (0.0-0.2); #Eosinphils 0.2 thou/uL (0.0-0.7); #Lymphocytes 2.4 thou/uL (1.20-3.40); #Monocytes 0.7 thou/uL (0.11-0.59); #Neutrophils 5.4 thou/uL (1.40-6.50); %Basophils 0.8 % (0.0-1.0); %Eosinophils 2.2 % (0.0-10.0); %Lymphocytes 27.1 % (21.0-51.0); %Monocytes 7.8 % (0.0-10.0); %Neutrophils 62.1 % (42.0-75.0); Mean Corpuscular HGB CONC 34.3 g/dL (32.0-36.0); Mean Corpuscular Hemoglobin 33.7 pg (27.0-31.0); Mean Corpuscular Volume 98.2 fL (78.0-98.0); Mean Platelet Volume 6.5 fL (7.4-10.4); Platelet Count 197 thou/uL (130-400); RBC Distribution Width 10.8 % (11.5-14.5); Red Blood Cell (RBC) Count 4.15 mill/uL (4.70-6.10); White Blood Cell (WBC) Count 8.8 thou/uL (4.8-10.8)
[2020-05-04 16:43] LABS: ALT (SGPT) 25 U/L (8-55); AST (SGOT) 22 U/L (5-34); Albumin 4.2 g/dL (3.5-5.0); Alkaline Phosphatase 124 U/L (40-110); Anion Gap 16 mmol/L (10-20); BUN (Urea Nitrogen) 6 mg/dL (8.4-25.7); Bilirubin, Total 0.4 mg/dL (0.2-1.2); Calc. Creatinine Clearance 0 mL/min (70-130); Calcium 9.3 mg/dL (7.8-10.44); Carbon Dioxide 23 mmol/L (22-29); Chloride 99 mmol/L (98-107); Globulin 3.7 g/dL (2.4-3.5); Glucose 121 mg/dL (70-105); Potassium 3.9 mmol/L (3.5-5.1); Protein, Total 7.9 g/dL (6.0-8.3); Sodium 134 mmol/L (136-145)
[2020-05-04] MEDS ORDERED: Morphine 4 MG/ML VIAL ONE (18:30)
[2020-05-04] MEDS ORDERED: Ketorolac Tromethamine 30 MG/ML VIAL ONE (18:30)
[2020-05-04] MEDS ORDERED: Vancomycin 1 GM/200 ML BAG ONE (18:30)
[2020-05-04] MEDS ORDERED: Ondansetron PF 4 MG/2 ML Vial ONE (18:48)
[2020-05-04] MEDS ORDERED: Dexamethasone 10 MG/ML VIAL ONE (18:48)
--- NOTE | 2020-05-04 18:53 | MRI ---
MRI LUMBAR SPINE WITH AND WITHOUT CONTRAST: DATE: 05/04/20 HISTORY: 54-year-old male with low back pain, fecal incontinence and loss of control of both. COMPARISON: CT chest abdomen pelvis of 03/14/2020 MRI Lumbar spine of 02/12/2012 TECHNIQUE: Multiple sequences obtained in axial and sagittal planes, pre and post IV injection of gadolinium-bas ed contrast agent. FINDINGS: Review of the prior CT reveals that there are thirteen (13) paired ribs. For the purposes of this rep ort, the lowest ribbearing vertebra will be designated as L1, with bilateral small, accessory ribs. That would make the lowest lumbar type vertebra L6. Again noted is the compression fracture of L2 vertebral body, with minimal bony retropulsion, which q ualifies this as a burst fracture. There is diffuse bone marrow edema throughout the entire L2 verteb ral body. Maximum anterior loss of height is approximately 30 to 40%. Overall loss of height is appro ximately 20%. There has been no interval change in the loss of height since 03/14/20. This is new sin ce the prior MRI of 2011. The bony retropulsion is very mild such that there is no significant centra l spinal canal stenosis at this level. There is no high grade central spinal canal stenosis at any le rossana. The conus medullaris terminates at L3. The cauda equina is arranged in a symmetrical, normal distribu tion throughout the thecal sac. 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 Disc desiccation with central disc protrusions at L5-6 and L6-S1, with midline annular tears. No high grade neural foraminal stenosis at any level. No sixto nerve root compression at any level. N o abnormal enhancement to indicate epidural abscess. No abscess in the perivertebral spaces. Again noted is the dilation of left renal collecting system and left ureter. The CT showed the obstru ction to be at the left UVJ. Again noted is the distended urinary bladder with mural thickening. IMPRESSION: 1. Subacute traumatic burst fracture of L2, with very mild bony retropulsion and mild loss of he ight, unchanged since 03/14/20. 2. No high grade central spinal canal stenosis, cord impression, or cauda equina compression, at any level. 3. No epidural abscess or any other evidence of infectious spondylitis. 4. Mild to moderate degenerative disc disease at L5-L6 and L6-S1. 5. Left hydroureteronephrosis due to obstruction at the left ureterovesical junction. 6. Distended urinary bladder. 7. Transitional levels at thoracolumbar junction and lumbosacral junction. MARIBELL Morales POS: JIN
[2020-05-04 19:05] LABS: PTT 28.6 sec (22.9-36.1); Prothrombin Time 13.6 sec (12.0-14.7)
--- NOTE | 2020-05-04 19:53 | PDOC.HHP ---
Hospitalist HPI - History of Present Illness Urinary, fecal incontinence History of Present Illness: This is a 54-year-old male patient with a history of hypertension, cirrhosis, diabetes and hypercholesterolemia who presents as a referral from his primary care physician on account of urinary fecal incontinence. Of note patient was last admitted here on 03/14/2020 on account of an L1 burst fracture with left hydroureteronephrosis after he had a 14 foot fall from his deer stand at home. Also pertinent on his problem list was carotid artery disease and a solitary left kidney. He was placed on a TLSO brace and on discharge recommended to follow-up with neurosurgery urology and vascular surgery. It was noted that he was difficult to catheterize due to possible strictures and there was a plan for suprapubic catheter placement post discharge. After discharge from his previous admission he was doing generally well until about a week ago when he started having overflow incontinence and difficulty voidingwas reviewed by urology and had a suprapubic catheter placed about 4 days ago. 2 days ago he started noticing issues with function of his suprapubic catheter and some fecal incontinence. He went in to see his PCP today who recommended he come to the ED for further evaluation. At presentation today he had general persistent pain in his low back, suprapubic discomfort and had also pain in his left big toe on account of an acute gout flare. BP was 149/81, pulse 76, respiratory rate 16, temperature 98.0 and oxygen saturation 96 on room air. WBC was 8.8, hemoglobin 14.0 and platelets. Sodium was 134, alkaline phosphatase 124. MRI of his lumbar spine without contrast showed no epidural abscess or evidence of infectious spondylitis, no high-grade central canal stenosis or cord compression or cauda equina compression at any level. Also had left hydroureteral nephrosis due to obst ruction at the left ureteral vesicle junction and distended urinary bladder. Subacute traumatic burst fracture of L2 with mild bony retropulsion and mild loss of height unchanged from 03/14/2020 was noted. He was started on ceftriaxone and vancomycin, dexamethasone for his gout with morphine to help pain reduction. Received [address] Polk of urology was contacted and they suggested an attempt passage of Gonzalez catheter as his suprapubic catheter was blocked and removed. Hospitalist team was consulted to admit. At the time of my assessment patient was lying in bed with his TLSO brace in place. Attempted catheter placement was unsuccessful while I was there. He admitted to significant reduce pain in his back however had ongoing throbbing pain in his left big toe. He denied any chest pain cough shortness of breath or fever. Hospitalist ROS - Review of Systems Constitutional: denies: fever, chills, sweats, weakness ENT: denies: ear pain, ear discharge Respiratory: denies: cough, shortness of breath, hemoptysis Gastrointestinal: denies: nausea, vomiting, abdominal pain, diarrhea Genitourinary: reports: incontinence, retention Musculoskeletal: reports: back pain, leg pain. denies: neck pain, shoulder pain Neurological: reports: weakness. denies: seizures All other systems reviewed; all pertinent +/- noted in HPI/Subj - Medication Medications: Medications: Currently refer to ambulatory list. Allergies: No known drug allergies. Hospitalist History - Past Medical History Other Medical History: Hypertension, diabetes, hypercholesterolemia, solitary left kidney, carotid artery disease - Family History Family History: reports: no pertinent history - Social History Smoking Status: Former smoker Alcohol: reports: Occassional Living Situation: With Family Activity level: uses cane/walker - Exam General Appearance: awake alert Eye: PERRL, anicteric sclera ENT: normocephalic atraumatic Neck: supple, symmetric, no JVD Heart: RRR, no murmur, no gallops, no rubs Respiratory: CTAB, no wheezes, no rales, no ronchi Gastrointestinal: soft, non-tender, non-distended, normal bowel sounds Gastrointestinal - other findings: Infraumbilical area of erythema in previous suprapubic cath site Extremities: no cyanosis, no clubbing, no edema Extremities - other findings: Swollen erythematous tender left big toe Neurological: cranial nerve grossly intact, no weakness Psychiatric: normal affect, normal behavior, A&O x 3 Hospitalist Results - Labs Result Diagrams: 05/06/20 05:22 05/06/20 05:22 Lab results: WBC 8.8 thou/uL (4.8-10.8) 05/04/20 16:05 Hgb 14.0 g/dL (14.0-18.0) 05/04/20 16:05 Hct 40.8 % (42.0-52.0) L 05/04/20 16:05 MCV 98.2 fL (78.0-98.0) H 05/04/20 16:05 Plt Count 197 thou/uL (130-400) 05/04/20 16:05 Neutrophils % 62.1 % (42.0-75.0) 05/04/20 16:05 ESR Westergren 38 mm/hr (Less than 20) H 05/04/20 16:05 Sodium 134 mmol/L (136-145) L 05/04/20 16:05 Potassium 3.9 mmol/L (3.5-5.1) 05/04/20 16:05 Chloride 99 mmol/L (98-107) 05/04/20 16:05 Carbon Dioxide 23 mmol/L (22-29) 05/04/20 16:05 BUN 6 mg/dL (8.4-25.7) L 05/04/20 16:05 Creatinine 0.84 mg/dL (0.7-1.3) 05/04/20 16:05 Glucose 121 mg/dL (70-105) H 05/04/20 16:05 Calcium 9.3 mg/dL (7.8-10.44) 05/04/20 16:05 Total Bilirubin 0.4 mg/dL (0.2-1.2) 05/04/20 16:05 AST 22 U/L (5-34) 05/04/20 16:05 ALT 25 U/L (8-55) 05/04/20 16:05 Alkaline Phosphatase 124 U/L (40-110) H 05/04/20 16:05 C-Reactive Protein 1.05 mg/dL (= or < 0.5) H 05/04/20 16:05 Serum Total Protein 7.9 g/dL (6.0-8.3) 05/04/20 16:05 Albumin 4.2 g/dL (3.5-5.0) 05/04/20 16:05 Hospitalist H&P A/P - Plan Plan: This is a 54-year-old male patient with a history of hypertension and diabetes and recent L2 burst fracture and suprapubic catheter placement presenting with urinary fecal incontinence/retention due to failure of a suprapubic catheter. Urinary obstructionfailure of suprapubic catheter. Attempt Gonzalez catheter placement Urology evaluation in a.m. Abdominal wall cellulitis Started on vancomycin and ceftriaxonewe will continue L2 burst fracture Continue TLSO brace Neurosurgery evaluation in a.m. Carotid artery disease Carotid cardiovascular surgery involved. DVT prophylaxisLovenox CODE STATUSfull code
[2020-05-04] MEDS ORDERED: cefTRIAXone\\ROCEPHIN 1 GM VIAL ONE (20:33)
[2020-05-04] MEDS ORDERED: Dextrose 50% Abboject 50 ML SYRINGE SLOW IVP PRN ×2 (20:50→20:54)
[2020-05-04] MEDS ORDERED: Acetaminophen 325 MG TAB PO PRN (20:50)
[2020-05-04] MEDS ORDERED: Dextrose 5% in Water 1,000 ML IV PRN ×2 (20:50→20:54)
[2020-05-04 23:00] VITALS: BMI 23.4
[2020-05-04] MEDS: HYDROcodone/Acetaminophen 5/325 mg Tablet PO PRN (23:43)
[2020-05-04] MEDS ORDERED: Ondansetron PF 4 MG/2 ML Vial IVP PRN (23:45)
[2020-05-04] MEDS ORDERED: Sodium Chloride 0.9% 1,000 ML IV SCH (23:45)
[2020-05-04] MEDS ORDERED: Ondansetron ODT 4 MG TAB SL PRN (23:45)
[2020-05-05] MEDS ORDERED: traZODone HCl 50 MG TAB PO SCH (00:15)
--- NOTE | 2020-05-05 01:19 | CON ---
DATE OF CONSULTATION: 05/05/2020 SUBJECTIVE: The patient is a 54-year-old male, known to us for evaluation in February of 2020, following a fall from a deer stand with subsequent L2 burst fracture. He was neurologically intact and fitted with a TLSO clamshell which he has been wearing at all times. The patient reports he has been compliant with this brace. Unfortunately, the patient did not follow up with us as planned in approximately 4 weeks after this event. He reports that he has been dealing with some urinary issues. The patient has known urinary strictures and has recently had a suprapubic catheter placed. He was readmitted today for issues with suprapubic catheter function. He also developed some overflow urinary incontinence and an episode of fecal incontinence. The patient was evaluated with an MRI of the lumbar spine, which shows appropriately healing L2 burst fracture with no significant change in the amount of retropulsion or significant nerve compression. The patient otherwise has good motor function in the lower extremities and no other worrisome changes. PAST MEDICAL HISTORY: Urinary strictures, hypertension, diabetes, hyperlipidemia, solitary left kidney, coronary artery disease. FAMILY HISTORY: Noncontributory. SOCIAL HISTORY: He is a former smoker. He drinks socially. He does not use any drugs. REVIEW OF SYSTEMS: Per HPI. ALLERGIES: NO KNOWN DRUG ALLERGIES. PHYSICAL EXAMINATION: VITAL SIGNS: Stable. CONSTITUTIONAL: Awake and alert, in no acute distress. HEAD: Normocephalic and atraumatic. EYES: PERRLA. Extraocular movements intact. ENT: [place], intact, and moist. He has normal voice. NECK: Nontender. Free active range of motion. No meningismus or nuchal rigidity. CARDIAC: Regular rate and rhythm. MUSCULOSKELETAL: Free active range of motion of all extremities. No focal motor weakness. NEUROLOGIC: No focal neurologic deficits are appreciated. ASSESSMENT AND PLAN: The patient has known L2 burst fracture which appears to be healing appropriately without significant nerve compression on recent MRI. I do not believe that this is the cause of his recent episodes of urinary or fecal incontinence. We will defer to Urology in this regard. With regard to his L2 burst fracture, he should continue TLSO bracing at all times. I will arrange another followup visit with us in approximately 4 weeks with repeat x-rays. I have discussed this plan with Dr. Meyer, who is in agreement. Job ID: [id number] [facility]
[2020-05-05 05:57] LABS: #Lymphocytes 0.6 thou/uL (1.20-3.40); #Monocytes 0.1 thou/uL (0.11-0.59); %Basophils 0.7 % (0.0-1.0); %Eosinophils 0.1 % (0.0-10.0); %Lymphocytes 13.2 % (21.0-51.0); %Monocytes 1.9 % (0.0-10.0); %Neutrophils 84.2 % (42.0-75.0); Hemoglobin 12.8 g/dL (14.0-18.0); Mean Corpuscular HGB CONC 34.7 g/dL (32.0-36.0); Mean Corpuscular Hemoglobin 33.7 pg (27.0-31.0); Mean Corpuscular Volume 97.1 fL (78.0-98.0); Mean Platelet Volume 6.7 fL (7.4-10.4); Platelet Count 184 thou/uL (130-400); RBC Distribution Width 10.7 % (11.5-14.5); Red Blood Cell (RBC) Count 3.79 mill/uL (4.70-6.10); White Blood Cell (WBC) Count 4.8 thou/uL (4.8-10.8)
[2020-05-05] MEDS: HumaLOG 300 UNITS/3 ML VIAL SC PRN ×4 (06:02→21:06)
[2020-05-05 06:16] LABS: Anion Gap 14 mmol/L (10-20); BUN (Urea Nitrogen) 10 mg/dL (8.4-25.7); Calc. Creatinine Clearance 89 mL/min (70-130); Carbon Dioxide 22 mmol/L (22-29); Chloride 102 mmol/L (98-107); Glucose 254 mg/dL (70-105); Potassium 4.4 mmol/L (3.5-5.1); Sodium 134 mmol/L (136-145)
[2020-05-05 06:58] LABS: SARS-CoV-2 MS2 Positive; SARS-CoV-2 N Gene Negative; SARS-CoV-2 S Gene Negative; SARS-CoV-2 by NAA Not Detected (NotDetected); SARS-CoV-2 orf1ab Negative
[2020-05-05] MEDS ORDERED: Enoxaparin Sodium 40 MG/0.4 ML SYRINGE SC SCH (09:00)
[2020-05-05] MEDS: HYDROcodone/Acetaminophen 5/325 mg Tablet PO PRN ×3 (09:03→20:57)
--- NOTE | 2020-05-05 11:17 | CON ---
DATE OF CONSULTATION: 05/05/2020 REASON FOR CONSULTATION: Evaluate the patient with left great toe pain. The patient also has asymptomatic left carotid stenosis, which has been delayed in treatment due to him wearing a TLSO brace. Once this is off, we will get him in for TCAR. In regard to his left great toe, the patient states he has gout. He takes sour francis pills at home for gout, which helps. For some reason, he has been off them, presented with left great toe pain in addition to urinary troubles with his suprapubic tube. The urinary troubles have been worked out. He received a dose of steroids, which has greatly reduced his left great toe pain. He has no history of peripheral vascular disease. He does not claudicate. He has no rest pain. He is otherwise asymptomatic from a peripheral standpoint. PAST MEDICAL HISTORY: 1. Asymptomatic left carotid stenosis. 2. TLSO brace for fractured L1. 3. Hypertension. 4. History of urethral strictures, status post suprapubic tube placement. 5. History of esophageal strictures. 6. History of alcohol abuse in the past. 7. Dyslipidemia. PAST SURGICAL HISTORY: 1. Tonsillectomy. 2. Suprapubic tube placement. SOCIAL HISTORY: He quit smoking recently. He lives at home with his . HOME MEDICATION: Trazodone. ALLERGIES: NONE. REVIEW OF SYSTEMS: A 10-point review of systems is performed and is negative except as above. PHYSICAL EXAMINATION: GENERAL: This is a well-developed, well-nourished male, sitting upright in bed, in a TLSO brace. LUNGS: Clear bilaterally. HEART: Rhythm is regular. ABDOMEN: Soft and nontender. He has a suprapubic tube placed. VASCULAR: He has palpable femoral, dorsalis pedis, and posterior tibial pulses bilaterally. He has no ischemic changes to his feet. ASSESSMENT AND PLAN: 1. Gout. The patient is being treated and his left great toe pain has significantly decreased. 2. Asymptomatic left carotid stenosis will be addressed in the future as per previous plans. Job ID: [id number]
[2020-05-05] MEDS ORDERED: Cyclobenzaprine 10 MG TAB PO PRN (11:52)
[2020-05-05] MEDS ORDERED: Ibuprofen 200 MG TAB PO PRN (11:52)
[2020-05-05] MEDS ORDERED: traMADol HCl 50 MG TAB PO PRN (12:12)
[2020-05-05] MEDS ORDERED: Polyethylene Glycol 3350 17 GM Packet PO PRN (12:15)
--- NOTE | 2020-05-05 12:17 | PDOC.HOSPP ---
- Subjective Encounter Date: 05/05/20 (f/u urethral stricture) Encounter Time: 12:16 Subjective: Pt admitted yesterday for urinary obstruction and cellulitis in the context of recent L2 burst fracture and wearing TLSO brace. Pt reports improvement in redness/swelling wherethe suprapubic cath was at. He denies any new sx. Does report daily headaches that last a few hours in the back of his head. He's been out of all meds for a few weeks. - Objective Vital Signs & Weight: Vital Signs (12 hours) Temp Pulse Resp BP Pulse Ox 05/05/20 07:40 97.6 F 82 18 177/83 H 97 05/05/20 04:37 98.0 F 86 19 141/75 H 96 05/05/20 00:37 98.3 F 90 19 150/71 H 97 Weight Weight 173 lb I&O: 05/04/20 05/05/20 05/06/20 06:59 06:59 06:59 Intake Total 1736 Output Total 2600 Balance -864 Result Diagrams: 05/05/20 05:10 05/05/20 05:10 Additional Labs: Accuchecks 05/05/20 05/05/20 05/04/20 11:17 05:40 23:14 POC Glucose 307 H 229 H 149 H Hospitalist ROS - Medication Medications: Active Medications Generic Name Dose Route Start Last Admin Trade Name Freq PRN Reason Stop Dose Admin Hydrocodone Bitart/Acetaminophen 1 tab 05/04/20 20:50 05/05/20 09:03 Hydrocodone/Acetaminophen 5/325 Mg Tablet PO 1 tab Q4H PRN Administration Moderate Pain (4-6) Insulin Human Lispro 0 units 05/04/20 20:54 05/05/20 11:47 Humalog 300 Units/3 Ml Vial SC 5 unit .MILD SLIDING SCALE PRN Administration Mild Correctional Scale - Exam General Appearance: NAD Heart: RRR, no murmur Respiratory: CTAB, no wheezes, no rales, no ronchi Gastrointestinal: normal bowel sounds Extremities: no cyanosis, no clubbing, no edema Skin - other findings: erythema and mild induration where suprapubic cath was at Psychiatric: normal affect Hosp A/P (1) Urethral stricture Code(s): N35.919 - UNSPECIFIED URETHRAL STRICTURE, MALE, UNSPECIFIED SITE Status: Chronic Qualifiers: Urethral stricture type: unspecified stricture type (2) Cellulitis Code(s): L03.90 - CELLULITIS, UNSPECIFIED Status: Acute Qualifiers: Site of cellulitis: trunk (3) Lumbar burst fracture Code(s): S32.001A - STABLE BURST FRACTURE OF UNSP LUMBAR VERTEBRA, INIT Status: Acute Qualifiers: Encounter type: sequela Fracture type: closed Qualified Code(s): S32.001S - Stable burst fracture of unspecified lumbar vertebra, sequela (4) Carotid artery disease Code(s): I77.9 - DISORDER OF ARTERIES AND ARTERIOLES, UNSPECIFIED Status: Acute Qualifiers: Carotid artery disease type: unspecified Laterality: unspecified laterality Qualified Code(s): I77.9 - Disorder of arteries and arterioles, unspecified - Plan Cellulitis - continue Rocephin Urethral stricture and now s/p suprapubic cath removal - to OR Thursday with Dr. Polk Leg/back pain - no surgical indication - continue clamshell - resume gabapentin at lower dose - resume tramadol prn and flexeril Alcohol use - add ASE protocol without IV meds or scheduled valium Likely new DM dx - check A1c HTN - likely new dx - start metoprolol Carotid stenosis - resume asa/plavix after urology procedure - f/u with Dr. Campos as outpatient constipation - scheduled and prn bowel meds Insomnia - home trazodone dvt prophy -scd's gi prophy - not indicated code status - full reviewed plan of care with patient/, no questions or further neds at end of eval
[2020-05-05] MEDS ORDERED: Diazepam 5 MG TAB PO PRN (12:23)
--- NOTE | 2020-05-05 12:26 | CON ---
DATE OF CONSULTATION: 05/05/2020 REASON FOR CONSULTATION: Urinary retention. CHIEF COMPLAINT: Suprapubic tube not draining. HISTORY OF PRESENT ILLNESS: A 54-year-old male with a history of hypertension, cirrhosis, alcohol abuse, diabetes, hypercholesterolemia, solitary kidney, urethral stricture disease, who I recently saw last year while inpatient after falling from a deer stand, sustaining an L2 burst fracture. He has had a clamshell in place ever since. He was seen in my clinic on Thursday, at which point, we placed a suprapubic tube with dilation of his urethral stricture to allow passage of the cystoscope. He tells me that the tube worked well until late Thursday, at which point, it no longer drained. He waited 2 days until presenting to the emergency room late yesterday for this issue. He was noted to have cellulitis around the suprapubic site. I advised that the suprapubic tube simply will be removed and a 14-Syrian Gonzalez catheter be placed, which was done by the nursing staff. His catheter has been draining clear urine all night long. On review of his MRI, he does have a distended bladder and left hydroureter and hydronephrosis. This was prior to catheter placement. His creatinine is stable. White count 8.8. Today, he tells me that he is having much less discomfort at the suprapubic site and his bladder is no longer hurting secondary to retention. He denies flank pain, nausea, or fevers. Neurosurgery would like him to wear his clamshell another month before beginning to give him time without it. He does have asymptomatic carotid stenosis with future plans for surgical intervention; however, the clamshell will need to be off first. PAST SURGICAL HISTORY: DVIU in 2005, suprapubic tube at beginning of this week. SOCIAL HISTORY: Alcohol abuse. Nonsmoker. MEDICATIONS: Reviewed. No pertinent urology medications. ALLERGIES: NO KNOWN DRUG ALLERGIES. FAMILY HISTORY: Reviewed, noncontributory. REVIEW OF SYSTEMS: A 12-point review of systems is negative except as mentioned above. PHYSICAL EXAMINATION: GENERAL: No acute distress. Conversant. HEART: Regular rate and rhythm. LUNGS: Unlabored breathing. Symmetric chest expansion. ABDOMEN: Abdominal exam not possible with clamshell in place. Suprapubic site with minimal erythema. Suprapubic incision is already closed completely. No tenderness. A 14-Syrian catheter in good position, draining clear urine. EXTREMITIES: No peripheral edema or cyanosis. NEUROLOGIC: Alert and oriented x3. PSYCHIATRIC: Normal mood and affect. LABORATORY AND IMAGING: Reviewed as mentioned in my HPI. ASSESSMENT AND PLAN: Urinary retention, bulbar stricture, solitary left kidney. I have spoken with Dr. Campos, who advises that the patient is under no significant risk for anesthesia for suprapubic tube replacement on Thursday. I spoke with the patient and his and advised that as long as we can take him off his blood thinners and safely undergo anesthesia on Thursday, we will place suprapubic tube with retrograde urethrogram and urethral ultrasound. He will discharge home afterwards, and about 2 to 3 weeks later, we will perform what I expect will be an anastomotic urethroplasty with Gonzalez catheter for 2 weeks afterwards. He and his expressed understanding of the plan, and as long as he is safe to do so, whished to continue on Thursday. Job ID: [id number]
[2020-05-05] MEDS ORDERED: Thiamine HCl 200 MG/2 ML VIAL IM SCH (12:30)
[2020-05-05] MEDS: Gabapentin 100 MG CAP PO SCH ×2 (14:25→20:26)
[2020-05-05] MEDS: cefTRIAXone\\ROCEPHIN 1 GM in Sodium Chloride 0.9% 100 ML IVPB SCH (20:24)
[2020-05-05] MEDS: Senokot S 8.6-50 MG TAB PO SCH (20:28)
[2020-05-05] MEDS: traZODone HCl 50 MG TAB PO SCH (20:28)
[2020-05-05] MEDS: Metoprolol Tartrate 25 MG TAB PO SCH (20:30)
[2020-05-05] MEDS ORDERED: FLU VACC QS2020-21(6MOS UP)/PF 60 MCG/0.5 ML SYRINGE IM ONE (21:00)
[2020-05-06] MEDS ORDERED: Diazepam 5 MG TAB PO PRN (04:00)
[2020-05-06 05:43] LABS: #Basophils 0.1 thou/uL (0.0-0.2); #Lymphocytes 1.6 thou/uL (1.20-3.40); #Monocytes 0.5 thou/uL (0.11-0.59); #Neutrophils 3.9 thou/uL (1.40-6.50); %Basophils 1.6 % (0.0-1.0); %Eosinophils 0.6 % (0.0-10.0); %Lymphocytes 26.6 % (21.0-51.0); %Monocytes 8.6 % (0.0-10.0); %Neutrophils 62.6 % (42.0-75.0); Hemoglobin 12.1 g/dL (14.0-18.0); Mean Corpuscular HGB CONC 34.1 g/dL (32.0-36.0); Mean Corpuscular Hemoglobin 33.4 pg (27.0-31.0); Mean Corpuscular Volume 97.9 fL (78.0-98.0); Mean Platelet Volume 6.3 fL (7.4-10.4); Platelet Count 163 thou/uL (130-400); RBC Distribution Width 10.7 % (11.5-14.5); Red Blood Cell (RBC) Count 3.63 mill/uL (4.70-6.10); White Blood Cell (WBC) Count 6.2 thou/uL (4.8-10.8)
[2020-05-06 06:07] LABS: Anion Gap 13 mmol/L (10-20); BUN (Urea Nitrogen) 9 mg/dL (8.4-25.7); Calc. Creatinine Clearance 92 mL/min (70-130); Calcium 8.9 mg/dL (7.8-10.44); Carbon Dioxide 25 mmol/L (22-29); Chloride 107 mmol/L (98-107); Glucose 114 mg/dL (70-105); Sodium 141 mmol/L (136-145)
[2020-05-06] MEDS: Multivitamin W/ Minerals 1 TAB PO SCH (08:26)
[2020-05-06] MEDS: Magnesium Oxide 400 MG TAB PO SCH (08:26)
[2020-05-06] MEDS: Gabapentin 100 MG CAP PO SCH ×3 (08:26→20:30)
[2020-05-06] MEDS: Senokot S 8.6-50 MG TAB PO SCH ×2 (08:26→20:30)
[2020-05-06] MEDS: Folic Acid 1 MG TAB PO SCH (08:26)
[2020-05-06] MEDS: Thiamine 100 MG TAB PO SCH (08:26)
[2020-05-06] MEDS: Metoprolol Tartrate 25 MG TAB PO SCH (08:27)
[2020-05-06] MEDS ORDERED: Amlodipine 5 MG TAB PO SCH (14:15)
--- NOTE | 2020-05-06 14:15 | PDOC.HOSPP ---
- Subjective Encounter Date: 05/06/20 (f/u cellulitis) Encounter Time: 14:14 Subjective: Pt admitted 2 days ago for abd wall cellulitis, urinary obstruction. He reports feeling better today - is awaiting a Urology procedure tomorrow with Dr. Polk. Pt reports hard stool yesterday, no bm today. - Objective Vital Signs & Weight: Vital Signs (12 hours) Temp Pulse Resp BP BP Pulse Ox 05/06/20 12:43 98.0 F 56 L 20 153/84 H 99 05/06/20 12:00 153/84 H 05/06/20 08:36 98.3 F 57 L 20 177/84 H 99 05/06/20 04:28 97.8 F 65 18 162/85 H 99 Weight Weight 173 lb I&O: 05/05/20 05/06/20 05/07/20 06:59 06:59 06:59 Intake Total 1736 2980 Output Total 2600 2100 Balance -864 880 Result Diagrams: 05/06/20 05:22 05/06/20 05:22 Additional Labs: Accuchecks 05/06/20 05/06/20 05/05/20 10:38 05:19 20:46 POC Glucose 143 H 119 H 192 H 05/05/20 15:49 POC Glucose 237 H Hospitalist ROS - Medication Medications: Active Medications Generic Name Dose Route Start Last Admin Trade Name Freq PRN Reason Stop Dose Admin Hydrocodone Bitart/Acetaminophen 1 tab 05/04/20 20:50 05/05/20 20:57 Hydrocodone/Acetaminophen 5/325 Mg Tablet PO 1 tab Q4H PRN Administration Moderate Pain (4-6) Folic Acid 1 mg 05/06/20 09:00 05/06/20 08:26 Folic Acid 1 Mg Tab PO 1 mg DAILY JANEEN Administration Gabapentin 100 mg 05/05/20 15:00 05/06/20 08:26 Gabapentin 100 Mg Cap PO 100 mg TID JANEEN Administration Ceftriaxone Sodium 1 gm/ 100 mls @ 200 mls/hr 05/05/20 21:00 05/05/20 20:24 Sodium Chloride IVPB 100 mls Q24HR JANEEN Administration Insulin Human Lispro 0 units 05/04/20 20:54 05/05/20 21:06 Humalog 300 Units/3 Ml Vial SC 2 unit .MILD SLIDING SCALE PRN Administration Mild Correctional Scale Iron/Minerals/Multivitamins 1 tab 05/06/20 09:00 05/06/20 08:26 Multivitamin W/ Minerals 1 Tab PO 1 tab DAILY JANEEN Administration Magnesium Oxide 400 mg 05/06/20 09:00 05/06/20 08:26 Magnesium Oxide 400 Mg Tab PO 400 mg DAILY JANEEN Administration Senna/Docusate Sodium 1 tab 05/05/20 21:00 05/06/20 08:26 Senokot S 8.6-50 Mg Tab PO 1 tab BID JANEEN Administration Thiamine HCl 100 mg 05/06/20 09:00 05/06/20 08:26 Thiamine 100 Mg Tab PO 100 mg DAILY JANEEN Administration Tramadol HCl 50 mg 05/05/20 12:12 05/06/20 09:10 Tramadol Hcl 50 Mg Tab PO 50 mg Q6H PRN Administration Mild-Moderate Pain (1-5) Trazodone HCl 100 mg 05/05/20 21:00 05/05/20 20:28 Trazodone Hcl 50 Mg Tab PO 100 mg HS JANEEN Administration - Exam General Appearance: NAD Heart: RRR, no murmur Respiratory: CTAB, no wheezes, no rales, no ronchi Gastrointestinal: soft, normal bowel sounds Extremities: no cyanosis, no clubbing, no edema Skin - other findings: erythema/induration around prior suprapubic cath site. Psychiatric: normal affect Hosp A/P (1) Urethral stricture Code(s): N35.919 - UNSPECIFIED URETHRAL STRICTURE, MALE, UNSPECIFIED SITE Status: Chronic Qualifiers: Urethral stricture type: unspecified stricture type (2) Cellulitis Code(s): L03.90 - CELLULITIS, UNSPECIFIED Status: Acute Qualifiers: Site of cellulitis: trunk (3) Lumbar burst fracture Code(s): S32.001A - STABLE BURST FRACTURE OF UNSP LUMBAR VERTEBRA, INIT Status: Acute Qualifiers: Encounter type: sequela Fracture type: closed Qualified Code(s): S32.001S - Stable burst fracture of unspecified lumbar vertebra, sequela (4) Carotid artery disease Code(s): I77.9 - DISORDER OF ARTERIES AND ARTERIOLES, UNSPECIFIED Status: Acute Qualifiers: Carotid artery disease type: unspecified Laterality: unspecified laterality Qualified Code(s): I77.9 - Disorder of arteries and arterioles, unspecified (5) Anemia Code(s): D64.9 - ANEMIA, UNSPECIFIED Status: Chronic Qualifiers: Anemia type: unspecified type Qualified Code(s): D64.9 - Anemia, unspecified - Plan Cellulitis - continue Rocephin - continues to improve Urethral stricture and now s/p suprapubic cath removal - to OR tomorrow with Dr. Polk Leg/back pain - no surgical indication - continue clamshell - continue gabapentin at lower dose - continue tramadol prn and flexeril - will need rx for these at discharge Alcohol use - ASE protocol - per RN, no tx indicated hus far Elevated blood sugars with normal A1c - no DM dx. May be secondary to infection HTN - likely new dx - metoprolol started and pulse in the 50's. Will d/c this and start amlodipine Carotid stenosis - resume asa/plavix after urology procedure per Dr. Polk - f/u with Dr. Campos as outpatient constipation - scheduled and prn bowel meds Insomnia - home trazodone Anemia - chronic/stable - needs outpatient follow up Dyslipidemia - needs outpatient follow-up dvt prophy -scd's gi prophy - not indicated code status - full reviewed plan of care with patient/, no questions or further needs at end of eval anticipate d/c when cleared by Urology - may be as soon as tomorrow
[2020-05-06] MEDS: traZODone HCl 50 MG TAB PO SCH (20:31)
[2020-05-06] MEDS: cefTRIAXone\\ROCEPHIN 1 GM in Sodium Chloride 0.9% 100 ML IVPB SCH (20:32)
[2020-05-06] MEDS: HYDROcodone/Acetaminophen 5/325 mg Tablet PO PRN (20:37)
[2020-05-06] MEDS: HumaLOG 300 UNITS/3 ML VIAL SC PRN (20:48)
[2020-05-07] MEDS: Sodium Chloride 0.9% 1,000 ML IV SCH ×2 (02:44→15:20)
[2020-05-07 05:47] LABS: #Eosinphils 0.1 thou/uL (0.0-0.7); #Lymphocytes 1.2 thou/uL (1.20-3.40); #Monocytes 0.6 thou/uL (0.11-0.59); #Neutrophils 2.6 thou/uL (1.40-6.50); %Basophils 0.6 % (0.0-1.0); %Eosinophils 2.4 % (0.0-10.0); %Lymphocytes 27.1 % (21.0-51.0); %Monocytes 13.2 % (0.0-10.0); %Neutrophils 56.8 % (42.0-75.0); Hemoglobin 12.5 g/dL (14.0-18.0); Mean Corpuscular HGB CONC 33.8 g/dL (32.0-36.0); Mean Corpuscular Hemoglobin 33.3 pg (27.0-31.0); Mean Corpuscular Volume 98.5 fL (78.0-98.0); Platelet Count 166 thou/uL (130-400); RBC Distribution Width 10.8 % (11.5-14.5); Red Blood Cell (RBC) Count 3.74 mill/uL (4.70-6.10); White Blood Cell (WBC) Count 4.6 thou/uL (4.8-10.8)
[2020-05-07 06:15] LABS: Anion Gap 12 mmol/L (10-20); BUN (Urea Nitrogen) 9 mg/dL (8.4-25.7); Calc. Creatinine Clearance 86 mL/min (70-130); Calcium 8.9 mg/dL (7.8-10.44); Carbon Dioxide 27 mmol/L (22-29); Chloride 106 mmol/L (98-107); Glucose 112 mg/dL (70-105); Potassium 4.5 mmol/L (3.5-5.1); Sodium 140 mmol/L (136-145)
[2020-05-07] MEDS ORDERED: EPINEPHrine 1 MG/ML AMP ONE (08:05)
[2020-05-07] MEDS ORDERED: Iothalamate Meglumine 60% 50 ML VIAL FS ONE (08:05)
[2020-05-07] MEDS ORDERED: Bupivacaine PF 0.5% 30 ML VIAL ONE (08:05)
[2020-05-07] MEDS ORDERED: Fentanyl 100 MCG/2 ML VIAL ONE ×2 (08:42→09:57)
[2020-05-07] MEDS ORDERED: Midazolam HCl 2 mg/2 ml Vial ONE (08:42)
[2020-05-07] MEDS ORDERED: Amlodipine 5 MG TAB PO SCH ×2 (09:00→14:30)
[2020-05-07] MEDS ORDERED: Promethazine HCl 25 MG/ML VIAL SLOW IVP PRN (10:05)
[2020-05-07] MEDS ORDERED: Ondansetron HCl/PF 4 MG/2 ML Vial IVP PRN (10:05)
[2020-05-07] MEDS ORDERED: Promethazine HCl 25 MG/ML VIAL IM PRN (10:05)
--- NOTE | 2020-05-07 10:06 | OP ---
DATE OF PROCEDURE: 05/07/2020 PREOPERATIVE DIAGNOSES: Stricture, urinary retention. POSTOPERATIVE DIAGNOSES: Stricture, urinary retention. PROCEDURES: Retrograde urethrogram, urethral ultrasound, suprapubic tube placement. ANESTHESIA: General. COMPLICATIONS: None. ESTIMATED BLOOD LOSS: Minimal. SPECIMENS: None. DESCRIPTION OF PROCEDURE: After informed consent, the patient was taken to the operating room, transferred to the table under his own power. Anesthesia was established. A time-out was performed showing the correct patient site and procedure. Preoperative antibiotics were administered. A Nathanael syringe with full-strength contrast was used to perform a retrograde urethrogram. He has recently undergone urethral dilation in the office to allow placement of the suprapubic tube last week and so there was no obvious strictured area, however, the point of the bulbar urethra that would normally enlarge before entering the membranous urethra was similar caliber to the rest of his penile urethra. He was then placed in stirrups and perineal ultrasound was performed while filling his urethra with sterile water continuously. The strictured area was easily identified knowing hyperechoic tissues surrounding the scarred urethra for a total length of about 1.5 cm. There was no surrounding hyperechogenicity. He was then prepped and draped while still in the lithotomy position. The 17-Sami cystoscope was advanced through the urethra down to the bulbar urethra, noting a dilated stricture with diseased urethra total length about 1.5 cm. The proximal bulbar urethra was normal in appearance, normal membranous urethra, and no significant prostate obstruction. The bladder was then entered noting severe trabeculation with multiple diverticula. A spinal needle was passed through his previous suprapubic site into the anterior aspect of the bladder. The intervening tissue was then infiltrated with about 15 cc of 0.25% Marcaine. The scope was then removed and the Lowsley retractor passed tenting up the suprapubic tissue. A 15-blade was then used to incise down upon the Lowsley, which was passed into the suprapubic site before connecting an 18-Sami catheter to this and bring it down into the bladder. The Lowsley was then removed. 10 cc was instilled in the balloon of the Gonzalez and the 17-Sami scope reinserted noting excellent position of the suprapubic tube. The scope was then withdrawn. A single chromic suture placed around the suprapubic site and finally a 2-0 nylon suture placed as a drain stitch for retention of the tube. The suprapubic insertion site was dressed with gauze and tape. He was awoken from anesthesia, transferred back to his hospital bed and taken to PACU in stable condition, where he will return to the floor before discharging him later today. Job ID: [id number]
--- NOTE | 2020-05-07 10:30 | RAD ---
Exam: Intraprocedure fluoroscopy for retrograde urethrogram. Line findings: Intraprocedure fluoroscop y was provided for Dr. Polk. T2 images are submitted for dictation. Retrograde opacification of the penile urethra. Limited evaluation of the prosthetic urethra and urinary bladder. There does a ppear to be contrast opacifying the bladder. IMPRESSION: Limited evaluation. Intraoperative fluoroscopy as above.
[2020-05-07] MEDS ORDERED: Lidocaine 1% PF 5 ML VIAL ONE (11:20)
[2020-05-07] MEDS ORDERED: ePHEDrine 50 MG/ML VIAL ONE (11:20)
[2020-05-07] MEDS ORDERED: PROPOFOL 200 MG/20 ML VIAL ONE (11:20)
[2020-05-07] MEDS: Folic Acid 1 MG TAB PO SCH (11:43)
[2020-05-07] MEDS: Multivitamin W/ Minerals 1 TAB PO SCH (11:43)
[2020-05-07] MEDS: Thiamine 100 MG TAB PO SCH (11:43)
[2020-05-07] MEDS: Magnesium Oxide 400 MG TAB PO SCH (11:43)
[2020-05-07] MEDS: Gabapentin 100 MG CAP PO SCH ×3 (11:44→19:41)
[2020-05-07] MEDS: Senokot S 8.6-50 MG TAB PO SCH ×2 (11:44→19:41)
[2020-05-07] MEDS: traMADol HCl 50 MG TAB PO PRN ×2 (11:47→17:44)
--- NOTE | 2020-05-07 14:04 | DIS ---
DATE OF ADMISSION: 05/04/2020 DATE OF DISCHARGE: Note - this was dictated on May 07, 2020, as it was anticipated that pt would be discharged. However, blood pressures were elevated and ASE this afternoon was 9. Pt to remain in the hospital tonight for further evaluation/treatment. FINAL DIAGNOSES: 1. Urinary obstruction with failed suprapubic catheter, now status post placement of new suprapubic catheter. 2. Abdominal wall cellulitis, improved. 3. Hypertension. 4. Leukopenia, mild. 5. Anemia, mild and chronic. SECONDARY DIAGNOSES: 1. L2 burst fracture, in a TLSO brace. 2. Carotid stenosis. CONSULTANTS: 1. Dr. Polk of Urology. 2. Dr. Campos of Cardiovascular Surgery. 3. Neurosurgery. PROCEDURES PERFORMED: Suprapubic catheter placement on May 07. MEDICATIONS: Reconciled at discharge. New medications, 1. Flexeril 10 mg p.o. t.i.d. as needed for back pain. 2. Gabapentin 100 mg p.o. t.i.d. 3. Oxybutynin 1 tablet daily. This was prescribed by Dr. Polk and sent directly to the pharmacy. 4. MiraLAX 17 g daily as needed for constipation. 5. Senokot-S 1 tablet b.i.d. 6. Bactrim DS 1 tablet b.i.d. for 5 days, prescriptions sent by Dr. Polk. 7. Amlodipine 10 mg p.o. daily, prescription for 30 tablets. 8. Tramadol 50 mg q.6 hours p.r.n., prescription for 20 tablets. Medications discontinued, 1. Gabapentin 300 mg as the patient had run out of this medication. We are restarting at a lower dose. 2. Tramadol 100 mg, was on this, but ran out of medicine prior to this hospitalization. Medications to resume, 1. Tylenol 1000 mg p.o. q.6 hours p.r.n. for pain. 2. Aspirin 81 mg daily. 3. Plavix 75 mg daily. 4. Ibuprofen 400 mg t.i.d. p.r.n. pain. 5. Trazodone 100 mg at night. FOLLOWUP: 1. Dr. Polk in the Urology Clinic. His clinic will contact the patient to schedule. 2. Follow up with Dr. Fox, the patient's primary care provider, to review this hospitalization, refill all medications, monitor blood pressure, evaluate for elevated cholesterol, and initiate treatments. 3. Follow up with Dr. Campos in the clinic for known carotid stenosis. 4. Follow up with Neurosurgery as previously indicated. HISTORY OF PRESENT ILLNESS: Mr. Kaufman is a 54-year-old male with history of urethral stricture and suprapubic catheter placement, who presented to the emergency room with lack of urine output from the catheter, as well as abdominal pain. The patient was found to have urinary obstruction, abdominal wall cellulitis, along with a known L2 burst fracture, in a TLSO brace, and carotid artery disease. He was admitted for further treatment and care. HOSPITAL COURSE: For the urinary obstruction, Gonzalez catheter was placed with a large amount of urine returned. This has been in place until the patient underwent suprapubic catheter placement today with Dr. Polk. The patient will continue with the suprapubic catheter and follow up with Dr. Polk in the outpatient setting. At some point, he will need repair of the urethral stricture. Cellulitis. The patient was treated with Rocephin and vancomycin and then just Rocephin. This has significantly improved. He is being discharged to complete a 5-day course of Bactrim. L2 burst fracture is known. The patient was previously hospitalized for this. Neurosurgery evaluated him and stated there were no acute issues. They will follow up with him in the outpatient setting in approximately 4 weeks. The patient is to continue wearing the TLSO brace. Carotid artery disease. This is a known issue and the patient was evaluated by Dr. Campos of Cardiovascular Surgery. The patient is asymptomatic, and will need followup in the outpatient clinic. New issues identified in the hospital are elevated blood pressure - the patient was consistently in the 150s to 170s. He was started on metoprolol initially, however, his pulse was down into the 50s. This was discontinued and he was started on amlodipine at 5 mg. Blood pressures are mildly improved; however, this will be adjusted to 10 mg amlodipine once daily. The patient will need followup in the outpatient clinic for re-evaluation and a titration of medications to reach his goal blood pressure. The patient with elevated blood sugars here as high as 300s. Hemoglobin A1c was performed, which is 5.0. The elevated blood sugars are likely from the infection. On chart review, the patient has a history of dyslipidemia with significantly elevated triglycerides. This will need to be rechecked and addressed in the outpatient setting. The patient does have a history of large amount of alcohol use on a regular basis. He has been evaluated by ASE protocol. The highest reading is this afternoon at 9 and pt will remain in the hospital tonight. PHYSICAL EXAMINATION: VITAL SIGNS: Temperature 97.4, pulse 65, respirations 14, sat 99% on room air, and blood pressure 160/86. GENERAL: Awake, alert, responsive, not in apparent distress, able to speak in full sentences. LUNGS: Clear to auscultation bilateral with good air movement. HEART: Normal S1, S2. Regular rate and rhythm. No significant murmur. ABDOMEN: Soft with present bowel sounds. Nontender. Nondistended. EXTREMITIES: No clubbing, cyanosis, or edema. STEWART FINDINGS AND TEST RESULTS: CBC today; 4.6, 12.5, 36.8, and 166. Metabolic panel today; 140, 4.5, 106, 27, 9, 1.06, 112, and calcium 8.9. Hemoglobin A1c is 5. Liver function test on May 04, T-bilirubin 0.4, AST 22, ALT 25, alkaline phosphatase 124, total protein 7.9, and albumin 4.2. Retrograde pyelogram was performed during the procedure today. Lumbar spine MRI on May 04 shows subtle traumatic burst fracture of L2 with very mild bony retropulsion and mild loss of height, no high-grade central canal stenosis, cord compression, or cauda equina at any level. Lbvw-vi-kyptzasa degenerative disk disease at L5-L6 and L6-S1, left hydroureteronephrosis due to obstruction of the left UVJ with a distended urinary bladder. DIET: Heart healthy. ACTIVITY: As instructed by Neurosurgery along with the wear of the TLSO brace. CODE STATUS: Full. DISCHARGE DISPOSITION: To home. Reviewed with the patient this hospital course, the importance of followup and the seek care precautions. He demonstrates understanding. Job ID: [id number] MTDD
[2020-05-07] MEDS: HYDROcodone/Acetaminophen 5/325 mg Tablet PO PRN (14:58)
[2020-05-07] MEDS: HumaLOG 300 UNITS/3 ML VIAL SC PRN (16:54)
[2020-05-07] MEDS: Acetaminophen 500 MG TAB PO PRN (17:44)
[2020-05-07] MEDS: Sulfameth/Trimethoprim DS 800-160mg TAB PO SCH (19:41)
[2020-05-07] MEDS: traZODone HCl 50 MG TAB PO SCH (19:41)
--- NOTE | 2020-05-07 19:42 | PDOC.HOSPP ---
- Subjective Encounter Date: 05/07/20 (f/u cellulitis) Encounter Time: 13:00 Subjective: 54 y/o male admitted for abdominal wall cellulitis and urinary obstruction secondary to failed suprapubic catheter. Pt evaluated earlier today after the urologic procedure. He denies any significant pain or problems. - Objective Vital Signs & Weight: Vital Signs (12 hours) Temp Pulse Resp BP BP Pulse Ox 05/07/20 18:20 99.4 F 05/07/20 16:20 100.1 F H 84 16 177/78 H 99 05/07/20 14:55 84 179/80 H 05/07/20 10:40 97.4 F L 65 14 160/86 H 99 05/07/20 10:20 97.4 F L 64 20 162/82 H 97 05/07/20 08:19 97.4 F L 63 16 176/90 H 98 05/07/20 08:14 63 176/90 H Weight Weight 173 lb I&O: 05/06/20 05/07/20 05/08/20 06:59 06:59 06:59 Intake Total 2980 2200 Output Total 2100 3750 1400 Balance 880 -1550 -1400 Result Diagrams: 05/07/20 05:18 05/07/20 05:18 Additional Labs: Accuchecks 05/07/20 05/07/20 05/07/20 16:19 10:39 05:26 POC Glucose 193 H 107 H 103 H 05/06/20 20:23 POC Glucose 223 H Hospitalist ROS - Medication Medications: Active Medications Generic Name Dose Route Start Last Admin Trade Name Freq PRN Reason Stop Dose Admin Acetaminophen 1,000 mg 05/05/20 11:52 05/07/20 17:44 Acetaminophen 500 Mg Tab PO 1,000 mg Q6H PRN Administration Mild Pain (1-3) Hydrocodone Bitart/Acetaminophen 1 tab 05/04/20 20:50 05/07/20 14:58 Hydrocodone/Acetaminophen 5/325 Mg Tablet PO 1 tab Q4H PRN Administration Moderate Pain (4-6) Cyclobenzaprine HCl 10 mg 05/05/20 11:52 05/06/20 14:26 Cyclobenzaprine 10 Mg Tab PO 10 mg TIDPRN PRN Administration Muscle Spasm Folic Acid 1 mg 05/06/20 09:00 05/07/20 11:43 Folic Acid 1 Mg Tab PO 1 mg DAILY JANEEN Administration Gabapentin 100 mg 05/05/20 15:00 05/07/20 14:56 Gabapentin 100 Mg Cap PO 100 mg TID JANEEN Administration Sodium Chloride 1,000 mls @ 75 mls/hr 05/06/20 23:30 05/07/20 15:20 Normal Saline 0.9% IV Not Given .[id number] [facility] Insulin Human Lispro 0 units 05/04/20 20:54 05/07/20 16:54 Humalog 300 Units/3 Ml Vial SC 2 unit .MILD SLIDING SCALE PRN Administration Mild Correctional Scale Iron/Minerals/Multivitamins 1 tab 05/06/20 09:00 05/07/20 11:43 Multivitamin W/ Minerals 1 Tab PO 1 tab DAILY JANEEN Administration Magnesium Oxide 400 mg 05/06/20 09:00 05/07/20 11:43 Magnesium Oxide 400 Mg Tab PO 400 mg DAILY JANEEN Administration Senna/Docusate Sodium 1 tab 05/05/20 21:00 05/07/20 11:44 Senokot S 8.6-50 Mg Tab PO 1 tab BID JANEEN Administration Thiamine HCl 100 mg 05/06/20 09:00 05/07/20 11:43 Thiamine 100 Mg Tab PO 100 mg DAILY JANEEN Administration Tramadol HCl 100 mg 05/05/20 12:12 05/07/20 17:44 Tramadol Hcl 50 Mg Tab PO 100 mg Q6H PRN Administration Moderate to Severe Pain (6-10) Tramadol HCl 50 mg 05/05/20 12:12 05/06/20 09:10 Tramadol Hcl 50 Mg Tab PO 50 mg Q6H PRN Administration Mild-Moderate Pain (1-5) Trazodone HCl 100 mg 05/05/20 21:00 05/06/20 20:31 Trazodone Hcl 50 Mg Tab PO 100 mg HS JANEEN Administration - Exam General Appearance: NAD Heart: RRR, no murmur Respiratory: CTAB, no wheezes, no rales, no ronchi Gastrointestinal: soft, non-tender, non-distended, normal bowel sounds Extremities: no cyanosis, no clubbing, no edema Hosp A/P (1) Urethral stricture Code(s): N35.919 - UNSPECIFIED URETHRAL STRICTURE, MALE, UNSPECIFIED SITE Status: Chronic Qualifiers: Urethral stricture type: unspecified stricture type (2) Cellulitis Code(s): L03.90 - CELLULITIS, UNSPECIFIED Status: Acute Qualifiers: Site of cellulitis: trunk (3) Lumbar burst fracture Code(s): S32.001A - STABLE BURST FRACTURE OF UNSP LUMBAR VERTEBRA, INIT Status: Acute Qualifiers: Encounter type: sequela Fracture type: closed Qualified Code(s): S32.001S - Stable burst fracture of unspecified lumbar vertebra, sequela (4) Carotid artery disease Code(s): I77.9 - DISORDER OF ARTERIES AND ARTERIOLES, UNSPECIFIED Status: Acute Qualifiers: Carotid artery disease type: unspecified Laterality: unspecified laterality Qualified Code(s): I77.9 - Disorder of arteries and arterioles, unspecified (5) Anemia Code(s): D64.9 - ANEMIA, UNSPECIFIED Status: Chronic Qualifiers: Anemia type: unspecified type Qualified Code(s): D64.9 - Anemia, unspecified (6) Hypertension Code(s): I10 - ESSENTIAL (PRIMARY) HYPERTENSION Status: Acute - Plan The plan was for discharge after the procedure. However blood pressures remained in the 180's systolic, and ASE score now 9. I recommend he remain in the hospital for treatment: Cellulitis - change to bactrim - Dr. Polk has electronically ordered this for outpatient use Urethral stricture and now with placement of new suprapubic catheter - 5 days of bactrim ds - 5 days of oxybutynin for bladder spasms Leg/back pain - no surgical indication - continue TLSO brace - continue gabapentin at lower dose - continue tramadol prn and flexeril - medications transmitted as discharge was anticipated Alcohol use - ASE protocol - score this afternoon was 9 - treatment per protocol. Elevated blood sugars with normal A1c - no DM dx. Improved HTN - likely new dx - metoprolol started and pulse in the 50's. - amlodipine 5 mg daily started yesterday - will increase to 10 mg daily Carotid stenosis - resume asa/plavix after urology procedure per Dr. Polk - f/u with Dr. Campos as outpatient constipation - scheduled and prn bowel meds Insomnia - home trazodone Anemia - chronic/stable - needs outpatient follow up Dyslipidemia - needs outpatient follow-up dvt prophy -scd's gi prophy - not indicated code status - full reviewed plan of care with patient/, no questions or further needs at end of eval anticipate d/c when bp's improved and no signs/sx of withdrawal
[2020-05-07] MEDS ORDERED: HumaLOG 300 UNITS/3 ML VIAL SC PRN (22:00)
[2020-05-08] MEDS: Sodium Chloride 0.9% 1,000 ML IV SCH (03:04)
[2020-05-08 06:05] LABS: Anion Gap 11 mmol/L (10-20); BUN (Urea Nitrogen) 9 mg/dL (8.4-25.7); Calc. Creatinine Clearance 92 mL/min (70-130); Calcium 8.8 mg/dL (7.8-10.44); Carbon Dioxide 26 mmol/L (22-29); Chloride 101 mmol/L (98-107); Glucose 159 mg/dL (70-105); Potassium 3.6 mmol/L (3.5-5.1); Sodium 134 mmol/L (136-145)
[2020-05-08] MEDS: Sulfameth/Trimethoprim DS 800-160mg TAB PO SCH (08:02)
[2020-05-08] MEDS: Gabapentin 100 MG CAP PO SCH (08:03)
[2020-05-08] MEDS: Magnesium Oxide 400 MG TAB PO SCH (08:03)
[2020-05-08] MEDS: Multivitamin W/ Minerals 1 TAB PO SCH (08:04)
[2020-05-08] MEDS: Thiamine 100 MG TAB PO SCH (08:04)
[2020-05-08] MEDS: Folic Acid 1 MG TAB PO SCH (08:04)
[2020-05-08] MEDS: Senokot S 8.6-50 MG TAB PO SCH (08:04)
[2020-05-08] MEDS: traMADol HCl 50 MG TAB PO PRN (08:07)
[2020-05-08] MEDS: Acetaminophen 500 MG TAB PO PRN (08:08)
[2020-05-08 08:25] VITALS: BP 166/83; TEMP 98.4
[2020-05-08] MEDS ORDERED: Amlodipine 10 MG TAB PO SCH (09:00)
[2020-05-08] MEDS ORDERED: Oxybutynin ER 5 MG TAB PO SCH (09:00)
--- NOTE | 2020-05-08 22:18 | PDOC.DS.DS ---
Provider - Provider Date of Admission: 05/07/20 10:33 Date of Discharge: 05/08/20 Admitting Provider: Rudy Anderson MD Consultations: Urology Primary Care Physician: Israel Fox MD Course - Hospital Course Hospital Course: Patient is a 54-year-old male with hypertension, recent lumbar fracture with obstructive uropathy with indwelling suprapubic catheter presented to the emergency room suprapubic discomfort. His workup was consistent with abdominal wall cellulitis along with suprapubic catheter malfunction. Please refer to the history and physical for further details. The patient was admitted to the hospital with above diagnosis. He was evaluated by urology service. On 05/07 he underwent retrograde urethrogram with urethral ultrasound and suprapubic tube placement. He was placed on empiric antibiotics that has been transitioned to oral. Patient was also evaluated by neurosurgery due to recent L2 burst fracture. He was advised to continue TLSO bracing at all times. He will also follow-up with neurosurgery as outpatient in 4 weeks. Final diagnosis: Suprapubic catheter malfunction causing suprapubic pain Abdominal wall cellulitis Urinary retention requiring suprapubic catheter History of solitary left kidney Recent L2 burst fracture requiring TLSO bracing at all times History of asymptomatic left carotid stenosisfollowed by cardiovascular Chronic anemia suspected due to nutritional deficiency CKD stage II Hyponatremia Resuscitation Status: 05/04/20 20:50 Resuscitation Status Routine Resuscitation Status: FULL: Full Resuscitation - Labs Lab Results: 05/07/20 05:18 05/08/20 04:58 Abnormal Lab Results - Last 48 hrs 05/07/20 05:18: WBC 4.6 L, RBC 3.74 L, Hgb 12.5 L, Hct 36.8 L, MCV 98.5 H, MCH 33.3 H, RDW 10.8 L, MPV 6.0 L, Monocytes % 13.2 H, Monocytes # 0.6 H 05/08/20 04:58: Sodium 134 L Microbiology - Entire Visit 05/04/20 16:05 Venous blood - Left Arm Blood Culture - Preliminary NO GROWTH AT 48 HOURS 05/04/20 16:08 Venous blood - Right Arm Blood Culture - Preliminary NO GROWTH AT 48 HOURS - Physical Exam Vitals: Weight Weight 173 lb Physical Exam: The patient was seen and examined on the day of discharge. Plan - Discharge Medications Prescriptions: Cyclobenzaprine [Flexeril] 10 mg PO TID PRN #20 tab PRN Reason: Muscle Spasm Gabapentin [Neurontin] 100 mg PO TID #60 cap amLODIPine Besylate [Norvasc] 10 mg PO DAILY #30 tablet traMADol HCl [Ultram] 50 mg PO Q6H PRN #20 tab PRN Reason: Mild-Moderate Pain (1-5) Home Medications: Medication Instructions Recorded Confirmed Type traZODone HCl [Trazodone HCl] 100 mg PO HS 06/18/19 05/04/20 History Acetaminophen [Tylenol Extra 1,000 mg PO Q6HR tab 03/16/20 05/04/20 Rx Strength] Aspirin [Ecotrin Low Strength] 81 mg PO DAILY tab 03/16/20 05/04/20 Rx Clopidogrel Bisulfate [Plavix] 75 mg PO DAILY #30 tab 03/16/20 05/04/20 Rx Ibuprofen [Motrin IB] 400 mg PO TIDPRN PRN tab 03/16/20 05/04/20 Rx Cyclobenzaprine [Flexeril] 10 mg PO TID PRN #20 tab 05/07/20 Rx Gabapentin [Neurontin] 100 mg PO TID #60 cap 05/07/20 Rx Oxybutynin ER [Ditropan XL] 10 mg PO DAILY tab 05/07/20 Rx Polyethylene Glycol 3350 [Miralax] 17 gm PO DAILYPRN PRN pk 05/07/20 Rx Sennosides/Docusate Sodium 1 tab PO BID tab 05/07/20 Rx [Senokot S] Sulfamethoxazole/Trimethoprim 1 tab PO BID tab 05/07/20 Rx [Bactrim DS] amLODIPine Besylate [Norvasc] 10 mg PO DAILY #30 tablet 05/07/20 Rx traMADol HCl [Ultram] 50 mg PO Q6H PRN #20 tab 05/07/20 Rx Allergies: No Known Allergies Allergy (Verified 07/14/19 16:53) - Discharge Instructions Discharge Instructions:: four medications: Bactrim (antibiotic), oxybutynin (bladder spasms), amlodipine (blood pressure), and tramadol (pain) have been sent to your [facility] pharmacy. keep the suprapubic tube site covered with clean gauze or a large bandaid daily wash your hands before and after touching your incision. watch for signs of infection. call your doctor if you develop a fever or notice any of the following regarding your incision: increased redness, swelling, tenderness, heat, or yellow drainage. shower/bathe normally Activity:: Activity as Tolerated Nourishment:: Heart Healthy Diet Therapies:: Not Applicable Equipment/Supplies:: Not Applicable Additional Equipment / Supplies Instructions:: suprapubic catheter care as ins tructed by Dr. Polk IV Therapy:: Not Applicable - Follow up Plan Referrals: Bob Meyer MD [Active] - 3-4 Weeks (Please call the Neurosurgery office to schedule a follow up in 4 weeks.) Ken Polk MD [Active] - (Dr. polk's office will be calling to arrange your urethral stricture surgery. We typically wait about 3 weeks with the suprapubic tube in place before proceeding. ) Arthur Campos MD [Active] - (Please follow up as previously scheduled.) Israel Fox MD [Primary Care Provider] - 7 Days (Please follow up for the followin 1. Recheck blood pressure and adjust medication 2. Evaluate cholesterol and start treatment 3. Refill medications - including pain medication if needed 4. Address any other health needs) Disposition: HOME Quality - Care Measures CORE MEASURES:: N/A
== END 2020-05-08 10:50 | disposition home or self-care (01) | DRG 699 ==
LOC: ERS 15:36 → SJJU 19:22 → OBSVTOIN 05-07 10:33
PROVIDERS: ADMIT Internal Medicine; ATTEND Internal Medicine
PROC: 0TPBX0Z Removal of Drainage Device from Bladder, External Approach (ICD-10-PCS; 2020-05-05)
PROC: 0T9B70Z Drainage of Bladder with Drainage Device, Via Natural or Artificial Opening (ICD-10-PCS; 2020-05-05)
PROC: 0T9B40Z Drainage of Bladder with Drainage Device, Percutaneous Endoscopic Approach (ICD-10-PCS; principal; 2020-05-07)
PROC: BT40ZZZ Ultrasonography of Bladder (ICD-10-PCS; 2020-05-07)
PROC: BT1FZZZ Fluoroscopy of Left Kidney, Ureter and Bladder (ICD-10-PCS; 2020-05-07)
DX: T83.84XA Pain due to genitourinary prosthetic devices, implants and grafts, initial encounter (principal); L03.311 Cellulitis of abdominal wall; T81.49XA Infection following a procedure, other surgical site, initial encounter; Q60.0 Renal agenesis, unilateral; E87.1 Hypo-osmolality and hyponatremia; N13.8 Other obstructive and reflux uropathy; Z23 Encounter for immunization; Z20.822 Contact with and (suspected) exposure to COVID-19; R33.9 Retention of urine, unspecified; I65.22 Occlusion and stenosis of left carotid artery; N18.2 Chronic kidney disease, stage 2 (mild); D53.9 Nutritional anemia, unspecified; N32.3 Diverticulum of bladder; E78.00 Pure hypercholesterolemia, unspecified; M10.9 Gout, unspecified; R73.9 Hyperglycemia, unspecified; K59.00 Constipation, unspecified; I12.9 Hypertensive chronic kidney disease with stage 1 through stage 4 chronic kidney disease, or unspecified chronic kidney disease; G47.00 Insomnia, unspecified; Y83.1 Surgical operation with implant of artificial internal device as the cause of abnormal reaction of the patient, or of later complication, without mention of misadventure at the time of the procedure; S32.021D Stable burst fracture of second lumbar vertebra, subsequent encounter for fracture with routine healing; Z87.891 Personal history of nicotine dependence; Z79.899 Other long term (current) drug therapy
CPT/HCPCS: 36415; 36416; 72158; 74420; 80048; 80053; 83036; 85025; 85610; 85652; 85730; 86140; 87040; 87635; 90471; 90662; 94760; A9579; G0008; J0171; J0690; J0696; J1100; J1650; J1885; J2250; J2270; J2405; J2704; J3010; J3370; J3411; J3490; S0020; U0003

== ENCOUNTER 2020-05-24 07:35 | Outpatient (CLI) | payer OTHER, SELFPAY ==
[2020-05-24 12:20] LABS: Anion Gap 15 mmol/L (10-20); BUN (Urea Nitrogen) 8 mg/dL (8.4-25.7); Calc. Creatinine Clearance 0 mL/min (70-130); Calcium 9.9 mg/dL (7.8-10.44); Carbon Dioxide 26 mmol/L (22-29); Chloride 103 mmol/L (98-107); Glucose 88 mg/dL (70-105); Hemoglobin 13.6 g/dL (14.0-18.0); Mean Corpuscular HGB CONC 33.4 G/DL (32.0-36.0); Mean Corpuscular Hemoglobin 31.6 PG (27.0-33.0); Mean Corpuscular Volume 94.7 fl (80.0-100.0); Platelet Count 208 10x3/uL (130-400); Potassium 4.5 mmol/L (3.5-5.1); RBC Distribution Width 11.1 % (11.5-14.5); Sodium 139 mmol/L (136-145); White Blood Cell (WBC) Count 6.3 10x3/uL (4.5-11.0)
--- NOTE | 2020-05-24 17:11 | EKG ---
Test Reason : Blood Pressure : / mmHG Vent. Rate : 071 BPM Atrial Rate : 071 BPM P-R Int : 156 ms QRS Dur : 098 ms QT Int : 372 ms P-R-T Axes : 079 075 038 degrees QTc Int : 404 ms Normal sinus rhythm Normal ECG No previous ECGs available Confirmed by DR. Zackary FERRARA ([id number]) on 05/24/2020 5:11:19 PM Referred By: TAYLOR Confirmed By:DR. Zackary FERRARA
[2020-05-24 18:28] LABS: SARS-CoV-2 PCR by NAA Not Detected (NotDetected)
== END 2020-05-24 07:36 | disposition home or self-care (01) ==
LOC: LABBT 07:35
PROVIDERS: ATTEND Urology
DX: Z01.818 Encounter for other preprocedural examination (principal); Z20.822 Contact with and (suspected) exposure to COVID-19; R33.9 Retention of urine, unspecified; N35.912 Unspecified bulbous urethral stricture, male; Q60.0 Renal agenesis, unilateral
CPT/HCPCS: 80048; 85027; 87635; 93005; 93010; U0003; U0005

== ENCOUNTER 2020-05-29 08:28 | Day surgery (SDC) | payer OTHER, SELFPAY ==
[2020-05-25 15:11] VITALS: BMI 21.6
[2020-05-29] MEDS ORDERED: Lidocaine 1% PF 5 ML VIAL ONE (10:19)
[2020-05-29] MEDS ORDERED: Glycopyrrolate 0.2 MG/ML 5 ML SYRINGE ONE (10:19)
[2020-05-29] MEDS ORDERED: Rocuronium Bromide 10 MG/ML (10ML VIAL) ONE (10:19)
[2020-05-29] MEDS ORDERED: PROPOFOL 200 MG/20 ML VIAL ONE (10:19)
[2020-05-29] MEDS ORDERED: Succinylcholine 200 MG/10 ml SYRINGE FS ONE (10:19)
[2020-05-29] MEDS ORDERED: PHENYLEPHRINE-NS 100 MCG/ML 10 ML SYRINGE ONE (10:19)
[2020-05-29] MEDS ORDERED: XYLOCAINE 2%-EPI 1:100,000 20 ML VIAL ONE (10:22)
[2020-05-29] MEDS ORDERED: Methylene Blue 50 MG/10 ML AMPUL ONE (10:22)
[2020-05-29] MEDS ORDERED: Bupivacaine 0.25% HCL 30 ML VIAL ONE (10:22)
[2020-05-29] MEDS ORDERED: Fentanyl 100 MCG/2 ML VIAL ONE (11:34)
[2020-05-29] MEDS ORDERED: Famotidine/PF 20 mg/2ml Vial ONE (11:48)
--- NOTE | 2020-05-29 16:30 | OP ---
DATE OF PROCEDURE: 05/29/2020 PREOPERATIVE DIAGNOSIS: Bulbar urethral stricture. POSTOPERATIVE DIAGNOSIS: Bulbar urethral stricture PROCEDURES PERFORMED: Anastomotic urethroplasty, suprapubic tube exchange. ANESTHESIA: General. COMPLICATIONS: None. ESTIMATED BLOOD LOSS: 150 mL. SPECIMEN: Urethral stricture. DESCRIPTION OF PROCEDURE: After informed consent, the patient was taken to the operating room, transferred to the table under his own power. Anesthesia was established. A time-out was performed, showing the correct patient, site, and procedure. Preoperative antibiotics were administered. He was prepped and draped in the lithotomy position. I began by making a midline perineal incision, which was carried down to the urethra with electrocautery. The urethra was circumferentially dissected and then this dissection was carried proximally to the area that appeared to be scarred. Once this was well dissected, I passed a 24-Prydeinig Schuyler sound, noting the area of the urethra, where this became obstructed. This was marked and the Schuyler sound removed. The urethra was transected at that point. I checked that the Alfie sound would pass antegrade easily through the remaining urethra. Stay sutures were placed and the urethra trimmed proximally until we reach normal caliber urethra. The 24-Prydeinig Schuyler sound then passed easily. The proximal stump was spatulated dorsally and the distal stump spatulated ventrally. Vicryl suture was used to perform the anastomosis beginning at the posterior wall, which was run in a single layer using several interrupted sutures. Once I reached the lateral aspect, I began performing this in two layers, first closing the mucosa with 4-0 Vicryl in an interrupted fashion. Before completing the mucosa, an 18-Prydeinig catheter was passed without difficulty into the bladder, draining a small amount of clear urine. The mucosa was then completed and the corpora spongiosum was closed also in an interrupted fashion at this time with 3-0 Vicryl suture. The muscle was closed over the urethra after copiously irrigating. I then closed subcutaneous tissues in 2 layers before running skin with Monocryl suture. Dermabond was applied. The suprapubic tube was then removed and a 16-Prydeinig catheter placed into the suprapubic tract. I did cauterize some granulation tissue at the suprapubic site, which was friable. 10 mL were instilled in the balloon. The suprapubic tube was interrogated to ensure it was in proper position. The urethral catheter was plugged and the suprapubic tube connected to bag drainage. He was then awoken from anesthesia, transferred back to his hospital bed and taken to PACU in stable condition, where he was discharged home upon recovery. Job ID: [id number] MTDD
== END 2020-05-29 15:50 | disposition home or self-care (01) ==
LOC: SDC 08:28
PROVIDERS: ATTEND Urology
PROC: 0T2BX0Z Change Drainage Device in Bladder, External Approach (ICD-10-PCS; principal; 2020-05-29)
PROC: 0TQD7ZZ Repair Urethra, Via Natural or Artificial Opening (ICD-10-PCS; principal; 2020-05-29)
DX: N35.912 Unspecified bulbous urethral stricture, male (principal); I10 Essential (primary) hypertension; F10.10 Alcohol abuse, uncomplicated; E78.5 Hyperlipidemia, unspecified; F41.9 Anxiety disorder, unspecified; F32.9 Major depressive disorder, single episode, unspecified; E11.9 Type 2 diabetes mellitus without complications; Z79.899 Other long term (current) drug therapy; Z87.891 Personal history of nicotine dependence
CPT/HCPCS: 88305; J0690; J2704; J3010; Q9968; S0020; S0028

== ENCOUNTER 2020-06-11 11:00 | Inpatient (IN) | payer OTHER, SELFPAY ==
[2020-06-12 14:26] VITALS: BMI 21.6
--- NOTE | 2020-06-16 04:29 | CON ---
DATE OF CONSULTATION: Mr. Kaufman is being brought in for an elective treatment of asymptomatic carotid disease. He has been scheduled for a left TCAR. PAST MEDICAL HISTORY: 1. Hypertension. 2. Esophageal strictures. 3. Alcohol abuse. 4. Dyslipidemia. 5. History of urethral strictures. 6. L1 fracture. PAST SURGICAL HISTORY: 1. Tonsillectomy. 2. Urethral stricture surgery. SOCIAL HISTORY: He quit smoking in 2019. He lives at home with his . MEDICATIONS: Noted. ALLERGIES: NONE. PHYSICAL EXAMINATION: GENERAL: This is a pleasant, well-developed, well-nourished man, resting comfortably. VITAL SIGNS: Height 6 feet 1 inch, weight is 164 pounds. Temperature is 98.3, pulse is 60 and regular, and blood pressure is 161/79. LUNGS: Clear. CARDIAC: Heart rhythm is regular. ABDOMEN: Soft and nontender. ASSESSMENT AND PLAN: For left-sided trans-carotid artery revascularization, the patient has been consented. Job ID: [id number]
[2020-06-18] MEDS ORDERED: Heparin 5,000 UNITS/ML VIAL ONE ×2 (08:28→08:29)
[2020-06-18] MEDS ORDERED: Protamine Sulfate 50 MG/5 ML VIAL ONE (08:29)
[2020-06-18] MEDS ORDERED: Bupivacaine PF 0.5% 30 ML VIAL ONE (08:29)
[2020-06-18] MEDS ORDERED: EPINEPHrine 1 MG/ML AMP ONE (08:29)
[2020-06-18] MEDS ORDERED: Phenylephrine 10 MG/ML VIAL ONE (09:04)
[2020-06-18] MEDS ORDERED: Fentanyl 100 MCG/2 ML VIAL ONE ×3 (09:04→11:33)
[2020-06-18] MEDS ORDERED: Rocuronium Bromide 10 MG/ML (10ML VIAL) ONE (09:59)
[2020-06-18] MEDS ORDERED: PROPOFOL 200 MG/20 ML VIAL ONE (09:59)
[2020-06-18] MEDS ORDERED: Dexamethasone 20 MG/5 ML VIAL ONE (09:59)
[2020-06-18] MEDS ORDERED: Glycopyrrolate 0.2 MG/ML 5 ML SYRINGE ONE (09:59)
[2020-06-18] MEDS ORDERED: Ketorolac Tromethamine 30 MG/ML VIAL ONE (09:59)
[2020-06-18] MEDS ORDERED: Ondansetron PF 4 MG/2 ML Vial ONE (09:59)
[2020-06-18] MEDS ORDERED: Lidocaine 1% PF 5 ML VIAL ONE (09:59)
[2020-06-18] MEDS ORDERED: Ondansetron HCl/PF 4 MG/2 ML Vial IVP PRN (10:53)
[2020-06-18] MEDS ORDERED: Promethazine HCl 25 MG/ML VIAL SLOW IVP PRN (10:53)
[2020-06-18] MEDS ORDERED: Promethazine HCl 25 MG/ML VIAL IM PRN ×2 (10:53→16:35)
--- NOTE | 2020-06-18 11:17 | OP ---
DATE OF PROCEDURE: 06/18/2020 PREOPERATIVE DIAGNOSIS: Asymptomatic left carotid stenosis. POSTOPERATIVE DIAGNOSIS: Asymptomatic left carotid stenosis. PROCEDURES PERFORMED: 1. Ultrasound-guided right femoral vein access. 2. Left transcarotid artery revascularization with a 10 x 40 Enroute stent. ANESTHESIA: General endotracheal - Dr. Brian Shaw. ESTIMATED BLOOD LOSS: Less than 50. FLUOROSCOPY TIME: 1 minute 55 seconds. TOTAL CONTRAST: 15 mL. TOTAL CLAMP TIME: 8 minutes. DESCRIPTION OF PROCEDURE: After consent was obtained, the patient was brought to the operating room and placed in supine position on the operating table. Appropriate central line was placed and general endotracheal anesthesia induced. Left neck and right groin were prepped and draped in usual sterile fashion. Using ultrasound guidance, the right femoral vein was accessed and femoral sheath placed. Skin incision was made over the supraclavicular area. Dissection down to the common carotid was obtained. Control of carotid was obtained with an umbilical tape. The patient was systemically heparinized. A 5-0 Prolene pursestring suture was placed. After an ACT of greater than 250, access to the carotid was obtained with micropuncture needle and wire. A micropuncture sheath was placed 2 cm. Hand-injected arteriogram was performed, illuminating carotid bifurcation in two views. The J-wire was then passed and stops short. Arterial sheath was placed. The arterial venous loop was then created and flow was confirmed. Common carotid artery was clamped. The area of stenosis was traversed with a micro wire. We selected a 10 x 40 stent, which was deployed over the bifurcation and posted with a 5 x 20 balloon. Followup angiogram showed an excellent result with no residual stenosis. After 2 minutes, the sheath was removed and pursestring suture secured. The femoral sheath was removed and hand pressure held. A 25 mg of protamine was administered. The wounds were then infiltrated with 0.5% Marcaine and closed in layers. The patient was awakened and neurologically intact at completion. The patient was transferred to the recovery area in stable condition. Job ID: [id number]
[2020-06-18] MEDS ORDERED: hydrALAZINE 20 MG/ML VIAL ONE (12:11)
[2020-06-18] MEDS ORDERED: Nitroglycerin 50 MG/250 ML BOT 250 ML IVPB PRN (16:35)
[2020-06-18] MEDS ORDERED: Sodium Chloride 0.9% 1,000 ML IV SCH (16:35)
[2020-06-18] MEDS ORDERED: hydrALAZINE 20 MG/ML VIAL SLOW IVP PRN (16:35)
[2020-06-18] MEDS ORDERED: Acetaminophen 325 MG TAB PO PRN (16:35)
[2020-06-18] MEDS ORDERED: Phenylephrine 40 MG in Sodium Chloride 0.9% 250 ML 250 ML IVPB PRN (16:35)
[2020-06-18] MEDS ORDERED: traMADol HCl 50 MG TAB PO PRN ×3 (16:35)
[2020-06-18] MEDS ORDERED: Polyethylene Glycol 3350 17 GM Packet PO PRN (16:35)
[2020-06-18] MEDS ORDERED: Senokot S 8.6-50 MG TAB PO PRN (16:35)
[2020-06-18] MEDS ORDERED: Ondansetron PF 4 MG/2 ML Vial IVP PRN (16:35)
[2020-06-18] MEDS ORDERED: traMADol HCl 50 MG TAB ONE (16:40)
[2020-06-18] MEDS ORDERED: Sodium Chloride 0.9% 10 ML ONE (16:45)
[2020-06-18] MEDS: CEFAZOLIN 2 GM in Premix Bag 1 BAG IVPB SCH (17:39)
[2020-06-18 17:41] VITALS: BP 158/91
[2020-06-18] MEDS ORDERED: Lisinopril 20 MG TAB PO SCH (17:45)
[2020-06-18] MEDS ORDERED: Amlodipine 10 MG TAB PO SCH (17:45)
[2020-06-18] MEDS: Gabapentin 100 MG CAP PO SCH (20:23)
[2020-06-18] MEDS ORDERED: Atorvastatin Calcium 10 MG TAB PO SCH (21:00)
[2020-06-18] MEDS ORDERED: traZODone HCl 50 MG TAB PO SCH (21:00)
[2020-06-19] MEDS: CEFAZOLIN 2 GM in Premix Bag 1 BAG IVPB SCH ×2 (01:13→09:00)
--- NOTE | 2020-06-19 07:31 | DIS ---
DATE OF ADMISSION: 06/18/2020 DATE OF DISCHARGE: 06/19/2020 DIAGNOSIS: Asymptomatic left carotid stenosis. PROCEDURE: Left transcarotid artery revascularization with a 10 x 40 en-route stent. DESCRIPTION OF HOSPITAL STAY: Mr. Kaufman was brought in for elective left carotid TCAR. He has done well postoperatively. He is neurologically intact. He is being discharged to home in good condition to follow up with me in 2 weeks. DISCHARGE MEDICATIONS: Unchanged. Job ID: [id number]
[2020-06-19] MEDS: Gabapentin 100 MG CAP PO SCH (08:03)
[2020-06-19] MEDS ORDERED: Clopidogrel Bisulfate 75 MG TAB PO SCH (09:00)
[2020-06-19] MEDS ORDERED: Lisinopril 20 MG TAB PO SCH (09:00)
[2020-06-19] MEDS ORDERED: Amlodipine 10 MG TAB PO SCH (09:00)
[2020-06-19] MEDS ORDERED: Aspirin 81 mg Enteric Coated Tablet PO SCH (09:00)
[2020-06-19 10:21] VITALS: TEMP 98
== END 2020-06-19 10:35 | disposition home or self-care (01) | DRG 36 ==
LOC: SURG A 06-18 07:10 → CCU 06-18 17:40
PROVIDERS: ADMIT Thoracic Surgery (Cardiothoracic Vascular Surgery); ATTEND Thoracic Surgery (Cardiothoracic Vascular Surgery)
PROC: 037J3DZ Dilation of Left Common Carotid Artery with Intraluminal Device, Percutaneous Approach (ICD-10-PCS; principal; 2020-06-18)
DX: I65.22 Occlusion and stenosis of left carotid artery (principal); I10 Essential (primary) hypertension; F10.10 Alcohol abuse, uncomplicated; E78.5 Hyperlipidemia, unspecified; Z90.89 Acquired absence of other organs; Z87.891 Personal history of nicotine dependence
CPT/HCPCS: 76000; 94640; C1725; C1876; C1884; J0171; J0360; J0690; J1100; J1642; J1644; J1885; J2370; J2405; J2704; J2720; J3010; J7620; S0020